=== PATIENT | female | born 1975 | race Caucasian/White ===

== ENCOUNTER 2017-07-09 23:13 | Emergency (ER) | payer BC, MEDICARE ==
[2017-07-09] MEDS ORDERED: ATARAX 25 MG PO ONE (23:38)
--- NOTE | 2017-07-09 23:42 | ERPHSYRPT ---
- History of Present Illness Time Seen by Provider: 07/09/17 23:25 Source: patient Exam Limitations: no limitations Patient Subjective Stated Complaint: PT STATES LAST NIGHT AT THE FESTIVAL SHE FELT LIKE BUGS WERE SWARMING HER AND BITING HER ARMS. REPORTS THIS MORNING SHE WOKE TO BLISTERS ON HER ARMS THAT WERE DRAINING AND PAINFUL, SHE ALSO HAD JAW PAIN. ALSO REPORTS NOT FEELING WELL SINCE WAKING WITH DIZZINESS, NAUSEA, AND SHAKING-PT STATES SHE BELIEVES THE SHAKINESS IS R/T HER PRE-EXISTING ANXIETY. PT ALSO STATES SHE HAS RECENTLY BEEN VOMITING BLOOD, STATES IT IS DAILY AND USUALLY IN THE [employer]. STATES SHE HAS BEEN TOLD IN THE PAST SHE HAS BLEEDING ULCERS, REPORTS SHE WAS DX APPROX 2012. Triage Nursing Assessment: PT IS AOX3, PUPILS PERRL, RESPS ARE EASY AND NON LABORED, SKIN IS PINK WARM AND DRY. BLISTERS NOTED TO THE BILATERAL ARMS. PRESENT ON THE RIGHT UPPER ARM AND THE LEFT UPPER AND LOWER ARM. ONE BLISTER NOTED TO THE RIGHT ANKLE. SOME OF THE BLISTERED AREAS ARE OPEN AND DRAINAGE IS PRESENT. SOME ARE COVERED IN A YELLOW/GOLD CRUST. PAIN IS REPORTED TO THE RIGHT ARM. DENIES ANY NEW MEDICATIONS OR EXPOSURE. Physician History: ABOUT 20 HOURS AGO PT NOTICED ITCHY BLISTERS ON HER RIGHT ARM AND LEFT FOREARM WITH NAUSEA, LEFT EARACHE, ANXIETY, DIZZINESS AND SHORTNESS OF AIR. PT STATES SHE HAS HAD INTERMITTENT VOMITING SINCE 2012 WITH BRIGHT RED BLOOD IN THE PAST 2 MONTHS. PT ALSO STATES SHE HAD AN EGD IN 2014 WITH DIAGNOSIS OF ULCERS. PT ALSO STATES HER ARMS AND LEGS HAVE INTERMITTENT NUMBNESS SINCE 2013. PT HAD HER GALLBLADDER REMOVED IN 2013. PT DENIES CHEST PAIN, FEVER, HEADACHE. Allergies/Adverse Reactions: No Known Drug Allergies Allergy (Unverified 07/09/17 23:36) Hx Tetanus, Diphtheria Vaccination/Date Given: Yes Hx Influenza Vaccination/Date Given: No Hx Pneumococcal Vaccination/Date Given: No Immunizations Up to Date: Yes - Review of Systems Constitutional: No Fever Ears, Nose, & Throat: Ear Pain Respiratory: Dyspnea Cardiac: No Chest Pain Abdominal/Gastrointestinal: Nausea, Vomiting, Hematemesis Neurological: Dizziness, No Headache All Other Systems: Reviewed and Negative - Past Medical History Pertinent Past Medical History: Yes GI Medical History: GERD, Ulcer Psycho-Social History: Anxiety - Past Surgical History Past Surgical History: Yes Gastrointestinal: Cholecystectomy Female Surgical History: Tubal Ligation - Social History Smoking Status: Never smoker Drug Use: none Patient Lives Alone: No - Female History Hx Last Menstrual Period: 06/19/17 - Nursing Vital Signs Nursing Vital Signs: Initial Vital Signs Temperature 97.6 F 07/09/17 23:14 Pulse Rate 91 H 07/09/17 23:14 Respiratory Rate 20 07/09/17 23:14 Blood Pressure 148/112 07/09/17 23:14 O2 Sat by Pulse Oximetry 99 07/09/17 23:14 Pain Scale Pain Intensity 2 - Physical Exam General Appearance: alert, anxiety Eye Exam: PERRL/EOMI Ears, Nose, Throat Exam: TMs normal, pharynx normal, moist mucous membranes, other (NO PHARYNGEAL EDEMA) Neck Exam: normal inspection Respiratory Exam: lungs clear Cardiovascular Exam: normal heart sounds Gastrointestinal/Abdomen Exam: soft, normal bowel sounds Back Exam: normal range of motion Extremity Exam: No pedal edema Neurologic Exam: alert, cooperative, No normal mood/affect (VERY ANXIOUS) Skin Exam: rash (~ 2-4 mm BLISTERS OVER THE POSTERIOR ASPECT OF THE LEFT FOREARM AND DISTAL POSTERIOR ASPECT OF THE RIGHT ARM ALL OVER AN ERYTHEMATOUS MACULAR RASH. ) SpO2 Interpretation: normal SpO2: 99 Oxygen Delivery: Room Air - Course Nursing assessment & vital signs reviewed: Yes Ordered Tests: Active Orders 24 hr Category Date Time Status AMYLASE Stat Lab 07/09/17 23:50 Completed CBC W DIFF Stat Lab 07/09/17 23:50 Completed CMP Stat Lab 07/09/17 23:50 Completed LIPASE Stat Lab 07/09/17 23:50 Completed MAGNESIUM Stat Lab 07/09/17 23:50 Completed PROTIME WITH INR Stat Lab 07/09/17 23:50 Completed PTT Stat Lab 07/09/17 23:50 Completed Medication Summary Discontinued Medications Generic Name Dose Route Start Last Admin Trade Name Freq PRN Reason Stop Dose Admin Ceftriaxone Sodium 1,000 mg 07/10/17 01:05 Rocephin 1000 Mg Inj IM 07/10/17 01:06 STAT ONE Hydroxyzine HCl 50 mg 07/09/17 23:38 07/09/17 23:45 Atarax 25 Mg PO 07/09/17 23:39 50 mg STAT ONE Administration Hydroxyzine HCl Confirm 07/09/17 23:44 Atarax 25 Mg Administered 07/09/17 23:45 Dose 50 mg .ROUTE .STK-MED ONE Potassium Chloride 10 meq 07/10/17 01:05 Klor Con 10 Meq PO 07/10/17 01:06 STAT ONE Lab/Rad Data: Laboratory Result Diagrams 07/09/17 23:50 07/09/17 23:50 Laboratory Results 07/09/17 07/09/17 07/09/17 Range/Units 23:50 23:50 23:50 WBC 13.2 H (4.0-10.5) K/mm3 RBC 4.73 (4.1-5.4) M/mm3 Hgb 12.9 (12.0-16.0) gm/dl Hct 40.1 (35-47) % MCV 84.8 (78-100) fl MCH 27.3 (26-32) pg MCHC 32.2 (32-36) g/dl RDW 15.3 H (11.5-14.0) % Plt Count 359 (150-450) K/mm3 MPV 10.8 H (6-9.5) fl Gran % 53.9 (36.0-66.0) % Lymphocytes % 33.6 (24.0-44.0) % Monocytes % 9.4 (0.0-12.0) % Eosinophils % 2.9 (0.00-5.0) % Basophils % 0.2 (0.0-0.4) % Basophils # 0.02 (0-0.4) INR 1.11 (0.8-3.0) APTT 29.8 (25.3-37.0) SECONDS Sodium 140 (136-145) mEq/L Potassium 3.2 L (3.5-5.1) mEq/L Chloride 104 (98-107) mEq/L Carbon Dioxide 24.6 (21-32) mEq/L Anion Gap 14.6 (5-15) MEQ/L BUN 9 (9-20) mg/dL Creatinine 0.74 (0.55-1.30) mg/dl Estimated GFR > 60 ML/MIN Glucose 98 (70-110) MG/DL Calcium 9.0 (8.5-10.1) mg/dL Magnesium 1.8 (1.8-2.4) mg/dL Total Bilirubin 0.40 (0.2-1.0) mg/dL AST 18 (15-37) U/L ALT 25 (12-78) U/L Alkaline Phosphatase 68 (46-116) U/L Serum Total Protein 8.0 (6.4-8.2) gm/dL Albumin 3.7 (3.4-5.0) g/dL Amylase 31 (25-115) U/L Lipase 116 (73-393) U/L Ur Collection Type Urine Color (YELLOW) Urine Appearance (CLEAR) Urine pH (5-6) Ur Specific [place] (1.005-1.025) Urine Protein (Negative) Urine Ketones (NEGATIVE) Urine Blood (0-5) Felipe/ul Urine Nitrite (NEGATIVE) Urine Bilirubin (NEGATIVE) Urine Urobilinogen (0-1) mg/dL Ur Leukocyte Esterase (NEGATIVE) Urine Microscopic RBC (0-2) /HPF Urine Microscopic WBC (0-5) /HPF Ur Epithelial Cells (FEW) /HPF Urine Bacteria (NEGATIVE) /HPF Urine Mucus (NEGATIVE) /HPF Urine Glucose (NEGATIVE) mg/dL Urine Opiates Level (NEGATIVE) Ur Methadone (NEGATIVE) Urine Barbiturates (NEGATIVE) Ur Phencyclidine (PCP) (NEGATIVE) Urine Amphetamine (NEGATIVE) U Benzodiazepine Level (NEGATIVE) Urine Cocaine (NEGATIVE) Urine Marijuana (THC) (NEGATIVE) Specimen Received 07/09/17 07/09/17 Range/Units 00:05 00:05 WBC (4.0-10.5) K/mm3 RBC (4.1-5.4) M/mm3 Hgb (12.0-16.0) gm/dl Hct (35-47) % MCV (78-100) fl MCH (26-32) pg MCHC (32-36) g/dl RDW (11.5-14.0) % Plt Count (150-450) K/mm3 MPV (6-9.5) fl Gran % (36.0-66.0) % Lymphocytes % (24.0-44.0) % Monocytes % (0.0-12.0) % Eosinophils % (0.00-5.0) % Basophils % (0.0-0.4) % Basophils # (0-0.4) INR (0.8-3.0) APTT (25.3-37.0) SECONDS Sodium (136-145) mEq/L Potassium (3.5-5.1) mEq/L Chloride (98-107) mEq/L Carbon Dioxide (21-32) mEq/L Anion Gap (5-15) MEQ/L BUN (9-20) mg/dL Creatinine (0.55-1.30) mg/dl Estimated GFR ML/MIN Glucose (70-110) MG/DL Calcium (8.5-10.1) mg/dL Magnesium (1.8-2.4) mg/dL Total Bilirubin (0.2-1.0) mg/dL AST (15-37) U/L ALT (12-78) U/L Alkaline Phosphatase (46-116) U/L Serum Total Protein (6.4-8.2) gm/dL Albumin (3.4-5.0) g/dL Amylase (25-115) U/L Lipase (73-393) U/L Ur Collection Type CLEAN CATCH Urine Color YELLOW (YELLOW) Urine Appearance CLEAR (CLEAR) Urine pH 6.0 (5-6) Ur Specific [place] 1.015 (1.005-1.025) Urine Protein NEGATIVE (Negative) Urine Ketones NEGATIVE (NEGATIVE) Urine Blood 5-10 (0-5) Felipe/ul Urine Nitrite NEGATIVE (NEGATIVE) Urine Bilirubin NEGATIVE (NEGATIVE) Urine Urobilinogen 1 (0-1) mg/dL Ur Leukocyte Esterase 1+ (NEGATIVE) Urine Microscopic RBC 0-2 (0-2) /HPF Urine Microscopic WBC 2-5 (0-5) /HPF Ur Epithelial Cells FEW (FEW) /HPF Urine Bacteria FEW (NEGATIVE) /HPF Urine Mucus SLIGHT (NEGATIVE) /HPF Urine Glucose NEGATIVE (NEGATIVE) mg/dL Urine Opiates Level NEG. (NEGATIVE) Ur Methadone NEG. (NEGATIVE) Urine Barbiturates NEG. (NEGATIVE) Ur Phencyclidine (PCP) NEG. (NEGATIVE) Urine Amphetamine NEG. (NEGATIVE) U Benzodiazepine Level NEG. (NEGATIVE) Urine Cocaine NEG. (NEGATIVE) Urine Marijuana (THC) NEG. (NEGATIVE) Specimen Received 07/10/17 0005 - Departure Time of Disposition: 01:10 Departure Disposition: Home Clinical Impression: MILD CELLULITIS OF RIGHT ARM AND LEFT FOREARM, ANXIETY Condition: Stable Critical Care Time: No Referrals: ANNIE PERALTA MD [Primary Care Provider] - Instructions: Cellulitis -- Adult Additional Instructions: FOLLOW UP WITH PRIVATE DOCTOR TOMORROW. Prescriptions: Hydroxyzine HCl 25 mg [Atarax 25 mg] 50 mg PO Q4H PRN PRN #40 tablet PRN Reason: Itching Clindamycin HCl 300 mg PO Q6H #40 capsule
[2017-07-09] MEDS ORDERED: ATARAX 25 MG ONE (23:44)
[2017-07-09 23:58] LABS: BASOPHIL % 0.2 % (0.0-0.4); Eosinophil % 2.9 % (0.00-5.0); Granulocytes % 53.9 % (36.0-66.0); Lymphocytes % 33.6 % (24.0-44.0); Mean Cell Volume 84.8 fl (78-100); Mean Corpuscular Hemoglobin 27.3 pg (26-32); Mean Platelet Volume 10.8 fl (6-9.5); Monocytes % 9.4 % (0.0-12.0); Platelet Count 359 K/mm3 (150-450); Red Blood Count 4.73 M/mm3 (4.1-5.4); Red Cell Distribution Width 15.3 % (11.5-14.0); White Blood Count 13.2 K/mm3 (4.0-10.5)
[2017-07-10 00:12] LABS: INR 1.11 (0.8-3.0); PROTIME 12.3 SECONDS (9.95-12.35)
[2017-07-10 00:15] LABS: PTT 29.8 SECONDS (25.3-37.0)
[2017-07-10 00:21] LABS: ALBUMIN 3.7 g/dL (3.4-5.0); ALKALINE PHOSPHATASE 68 U/L (46-116); ANION GAP 14.6 MEQ/L (5-15); BLOOD UREA NITROGEN 9 mg/dL (9-20); CHLORIDE 104 mEq/L (98-107); Carbon Dioxide 24.6 mEq/L (21-32); Glucose 98 MG/DL (70-110); LIPASE 116 U/L (73-393); MAGNESIUM 1.8 mg/dL (1.8-2.4); Potassium 3.2 mEq/L (3.5-5.1); SGOT/AST 18 U/L (15-37); SGPT/ALT 25 U/L (12-78); SODIUM 140 mEq/L (136-145)
[2017-07-10 00:28] LABS: Collection Type CLEAN CATCH; Leukocyte Esterase 1+ (NEGATIVE)
[2017-07-10 00:29] LABS: ADD URINE CULTURE? YES (NO); Bacteria FEW /HPF (NEGATIVE); Bilirubin NEGATIVE (NEGATIVE); COMPLETE URINE MICROSCOPIC? YES; Epithelial Cells FEW /HPF (FEW); Glucose NEGATIVE (NEGATIVE); Mucus SLIGHT /HPF (NEGATIVE)
[2017-07-10 01:00] VITALS: PULSE 68
[2017-07-10] MEDS ORDERED: Klor Con 10 MEQ PO ONE ×2 (01:05→01:09)
[2017-07-10] MEDS ORDERED: Rocephin 1000 MG INJ IM ONE (01:05)
[2017-07-10] MEDS ORDERED: Rocephin 1000 MG INJ ONE (01:09)
[2017-07-10 01:10] VITALS: O2SAT 99
[2017-07-10 01:38] VITALS: BP 150/98
== END 2017-07-10 01:38 | disposition home or self-care (01) ==
LOC: ED 23:13
DX: L03.113 Cellulitis of right upper limb (principal); L03.114 Cellulitis of left upper limb; F41.9 Anxiety disorder, unspecified; R11.2 Nausea with vomiting, unspecified; K92.0 Hematemesis; R42 Dizziness and giddiness; K21.9 Gastro-esophageal reflux disease without esophagitis
CPT/HCPCS: 36415; 80053; 80307; 81000; 82150; 83690; 83735; 85025; 85610; 85730; 87086; 96372; 99284; J0696; A9270-GY

== ENCOUNTER 2017-07-23 06:08 | Day surgery (SDC) | payer MEDICARE ==
[~2017-07-23 06:08] MED LIST: Lactated Ringers 1,000 ML IV SCH
[2017-07-23] MEDS ORDERED: DIPRIVAN 200 MG/20 ML IV ONE (06:09)
[2017-07-23] MEDS ORDERED: Versed 2 MG/2 ML Injection IV ONE (06:09)
--- NOTE | 2017-07-23 07:44 | OP ---
SURGERY DATE/TIME: 07/23/201705 PREOPERATIVE DIAGNOSIS: Hematemesis. POSTOPERATIVE DIAGNOSIS: Normal exam. PROCEDURE: EGD. SURGEON: Samm Orozco M.D. ANESTHESIA: MAC by Abimael Borrego CRNA. ESTIMATED BLOOD LOSS: None. SPECIMENS: None. DESCRIPTION OF PROCEDURE: After informed written consent was obtained, the patient was taken to the endoscopy suite. She underwent monitored anesthesia and a bite block was inserted. The endoscope was inserted into the posterior oropharynx and under direct visualization the esophagus was traversed. The esophageal mucosa had a normal in appearance free of any lesions or defects. Upon entering the stomach there was a normal rugated gastric mucosa free of any lesions or defects. The gastroesophageal junction likewise appeared normal upon entry. Upon entry into the stomach the gastric mucosa was rugated and normal in appearance free of defects. The pylorus was inspected and traversed and the first and second portions of the duodenum all had normal mucosal appearance free of lesions or abnormalities. Upon withdrawal again all mucosal surfaces were within normal limits. The scope was removed and the patient was transferred to the recovery room in excellent condition.
[2017-07-23] MEDS ORDERED: TYLENOL 325 MG PO STA (08:12)
[2017-07-23] MEDS ORDERED: TYLENOL 325 MG ONE (08:13)
[2017-07-23 08:36] VITALS: BP 108/62; PULSE 64; O2SAT 97
== END 2017-07-23 08:40 | disposition home or self-care (01) ==
LOC: SDC 06:08
PROVIDERS: ATTEND Family Medicine
PROC: 0DJ08ZZ Inspection of Upper Intestinal Tract, Via Natural or Artificial Opening Endoscopic (ICD-10-PCS; principal; 2017-07-23)
DX: K92.0 Hematemesis (principal)
CPT/HCPCS: 00740; J2250; J2704; A9270-GY

== ENCOUNTER 2017-12-31 21:55 | Emergency (ER) | payer MEDICARE ==
[2018-01-01] MEDS ORDERED: TORAdol 30 mg Injection IM ONE (00:20)
[2018-01-01] MEDS ORDERED: TORAdol 30 mg Injection ONE (00:21)
--- NOTE | 2018-01-01 00:21 | ERPHSYRPT ---
- History of Present Illness Time Seen by Provider: 01/01/18 00:07 Source: patient Exam Limitations: no limitations Patient Subjective Stated Complaint: Right Upper Arm Pain, radiation into right shoulder and upper back x1 month. Triage Nursing Assessment: Pt presents to the ED with complaints of right upper arm pain with radiation into back and right shoulder. Pt denies known injury, states "I feels like my bones are rubbing together." No deformity noted. Pt states pain worse with movement, slightly improved with rest. No distress noted. Skin PWD. Physician History: FOR THE PAST MONTH PT HAS HAD MID RIGHT ARM PAIN WITH RADIATION TO THE RIGHT SHOULDER AND UPPER BACK; DENIES NUMBNESS OF THE RIGHT HAND DIGITS; DENIES PRIOR INJURY TO THE RIGHT ARM. Allergies/Adverse Reactions: No Known Drug Allergies Allergy (Verified 07/23/17 06:29) Home Medications: Citalopram Hydrobromide 20 mg* [ceLEXa 20 MG] 20 mg PO DAILY 07/21/17 [ History] PANTOPRAZOLE 40 mg Tablet [Protonix 40MG Tablet] 40 mg PO QAM 07/21/17 [ History] Hx Tetanus, Diphtheria Vaccination/Date Given: Yes Hx Influenza Vaccination/Date Given: No Hx Pneumococcal Vaccination/Date Given: No Immunizations Up to Date: No - Review of Systems Musculoskeletal: Other (RIGHT ARM PAIN) - Past Medical History Pertinent Past Medical History: Yes Neurological History: No Pertinent History ENT History: No Pertinent History Cardiac History: No Pertinent History Respiratory History: No Pertinent History Endocrine Medical History: No Pertinent History Musculoskeletal History: No Pertinent History GI Medical History: GERD, Ulcer History: No Pertinent History Psycho-Social History: Anxiety Female Reproductive Disorders: No Pertinent History - Past Surgical History Past Surgical History: Yes Neuro Surgical History: No Pertinent History Cardiac: No Pertinent History Respiratory: No Pertinent History Gastrointestinal: Cholecystectomy Genitourinary: No Pertinent History Musculoskeletal: Other Female Surgical History: Tubal Ligation Other Surgical History: states six cyst removed from head area - Social History Smoking Status: Never smoker Exposure to second hand smoke: No Drug Use: none Patient Lives Alone: No - Female History Hx Last Menstrual Period: 12/16/2017 Hx Now: No - Nursing Vital Signs Nursing Vital Signs: Initial Vital Signs Temperature 97.6 F 12/31/17 22:24 Pulse Rate 80 12/31/17 22:24 Respiratory Rate 16 12/31/17 22:24 Blood Pressure 139/87 12/31/17 22:24 O2 Sat by Pulse Oximetry 99 12/31/17 22:24 Pain Scale Pain Intensity 5 - Physical Exam General Appearance: alert Shoulder Exam: normal ROM Elbow/Forearm Exam: normal ROM Wrist Exam: normal ROM Hand Exam: normal ROM Neuro/Tendon Exam: normal sensation, normal motor functions, normal tendon functions Mental Status Exam: alert Skin Exam: warm, dry SpO2 Interpretation: normal SpO2: 99 Oxygen Delivery: Room Air - Course Nursing assessment & vital signs reviewed: Yes - Radiology Exams Right Humerus X-ray Interpretation: Interpreted by me, No Fracture Ordered Tests: Active Orders 24 hr Category Date Time Status Sling Application STAT Care 01/01/18 01:48 Active HUMERUS Stat Exams 01/01/18 00:20 Ordered Medication Summary Discontinued Medications Generic Name Dose Route Start Last Admin Trade Name Freq PRN Reason Stop Dose Admin Ketorolac Tromethamine 60 mg 01/01/18 00:20 01/01/18 00:23 Toradol 30 Mg Injection IM 01/01/18 00:21 60 mg STAT ONE Administration Ketorolac Tromethamine Confirm 01/01/18 00:21 Toradol 30 Mg Injection Administered 01/01/18 00:22 Dose 60 mg .ROUTE .[facility] ONE - Departure Time of Disposition: 01:51 Departure Disposition: Home Clinical Impression: BURSITIS OF RIGHT ARM/SHOULDER Condition: Stable Critical Care Time: No Referrals: ANNIE PERALTA MD [Primary Care Provider] - Instructions: Bursitis Additional Instructions: FOLLOW UP WITH PRIVATE DOCTOR TOMORROW. WEAR RIGHT ARM SLING FOR COMFORT. Prescriptions: Naproxen [Naprosyn] 500 mg PO Q12H PRN PRN #20 tablet PRN Reason: Pain
[2018-01-01 01:19] VITALS: BP 117/78; PULSE 67
[2018-01-01 01:52] VITALS: O2SAT 99
--- NOTE | 2018-01-01 09:57 | XRAY ---
Indication: Pain. No known injury. Comparison: None 3 views of the right humerus obtained. No bony, articular, or soft tissue abnormalities.
== END 2018-01-01 02:01 | disposition home or self-care (01) ==
LOC: ED 21:55
DX: M75.51 Bursitis of right shoulder (principal)
CPT/HCPCS: 73060; 99284; J1885

== ENCOUNTER 2018-02-02 23:45 | Observation (INO) | payer MEDICARE ==
[2018-02-03] MEDS ORDERED: BABY ASPIRIN 81 MG CHEW PO ONE (00:07)
[2018-02-03] MEDS ORDERED: Sodium Chloride 0.9% 1000 ML 1,000 ML ONE (00:13)
[2018-02-03] MEDS ORDERED: BABY ASPIRIN 81 MG CHEW ONE (00:13)
[2018-02-03] MEDS ORDERED: Sodium Chloride 0.9% 1000 ML 1,000 ML IV SCH (00:15)
[2018-02-03] MEDS ORDERED: Nitrostat 0.4 MG (ED) SL ONE ×2 (00:28→00:31)
[2018-02-03 00:38] LABS: BASOPHIL % 0.2 % (0.0-0.4); Basophil (Absolute #) 0.02 (0-0.4); Eosinophil % 2.8 % (0.00-5.0); Granulocyte Absolute (ANC) 4.91 (1.4-6.9); Granulocytes % 46.3 % (36.0-66.0); Hematocrit 38.7 % (35-47); Hemoglobin 12.4 gm/dl (12.0-16.0); Lymphocyte (Absolute #) 4.38 (1.0-4.6); Lymphocytes % 41.3 % (24.0-44.0); Mean Corpuscular Hemoglobin 26.3 pg (26-32); Mean Platelet Volume 10.9 fl (6-9.5); Monocytes % 9.4 % (0.0-12.0); Platelet Count 385 K/mm3 (150-450); Red Blood Count 4.72 M/mm3 (4.1-5.4); Red Cell Distribution Width 16.7 % (11.5-14.0); White Blood Count 10.6 K/mm3 (4.0-10.5)
[2018-02-03 00:45] LABS: INR 1.08 (0.8-3.0)
[2018-02-03 00:50] LABS: BLOOD UREA NITROGEN 7 mg/dL (7-17); CHLORIDE 105 mmol/L (98-107); Calcium 9.1 mg/dL (8.4-10.2); Carbon Dioxide 24 mmol/L (22-30); Creatinine 1 0.58 mg/dL (0.52-1.04); Glucose 128 mg/dL (74-106); Potassium 3.3 mmol/L (3.5-5.1); SODIUM 139 mmol/L (137-145)
[2018-02-03 00:57] LABS: D-DIMER QUANTITATION < 215 ng/mL (215-500)
--- NOTE | 2018-02-03 01:13 | ERPHSYRPT ---
- History of Present Illness Time Seen by Provider: 02/03/18 00:12 Historian: patient Exam Limitations: clinical condition Patient Subjective Stated Complaint: pt states she started having chest pain at 1400 this afternoon; increasingly worse this pm; pain radiates into her back; states pain is most intense near her midchest and neck near her throat. Triage Nursing Assessment: pt a&o x3; skin p, w, & d; ambulated to room per self ; appears anxious and worried upon arrival; no other distress noted. Physician History: PATIENT WITH A HISTORY OF ANXIETY COMPLAINS OF ACUTE ONSET OF UPPER STERNAL CHEST PRESSURE SINCE 2PM WORSE UPON INSPIRATION, OCCASIONAL RADIATION TO HIS BACK. DENIES DYSPNEA, PALPITATIONS, OR DIAPHORESIS. PAIN SCALE 7/10. Timing/Duration: today Activities at Onset: none Quality: pressure, sharpness Location: substernal Chest Pain Radiation: back Severity of Pain-Max: moderate Severity of Pain-Current: moderate Modifying Factors: Improves With: breathing, change in position Associated Symptoms: hurts to breathe Prior Chest Pain/Cardiac Workup: no prior chest pain Nitro Today/Relief: 0.4 mg x 2, provided by ED Aspirin Treatment Today: 81 mg x 4, provided by ED Allergies/Adverse Reactions: No Known Drug Allergies Allergy (Verified 02/03/18 00:10) Home Medications: Citalopram Hydrobromide 20 mg* [ceLEXa 20 MG] 20 mg PO DAILY 07/21/17 [ History] PANTOPRAZOLE 40 mg Tablet [Protonix 40MG Tablet] 40 mg PO QAM 07/21/17 [ History] Hx Tetanus, Diphtheria Vaccination/Date Given: Yes Hx Influenza Vaccination/Date Given: No Hx Pneumococcal Vaccination/Date Given: No Immunizations Up to Date: No - Review of Systems Constitutional: No Fever, No Chills Eyes: No Symptoms Ears, Nose, & Throat: No Symptoms Respiratory: No Symptoms, No Cough, No Dyspnea Cardiac: Chest Pain, No Edema, No Syncope Abdominal/Gastrointestinal: No Abdominal Pain, No Nausea, No Vomiting, No Diarrhea Genitourinary Symptoms: No Symptoms, No Dysuria Musculoskeletal: No Symptoms, No Back Pain, No Neck Pain Skin: No Rash Neurological: No Dizziness, No Focal Weakness, No Sensory Changes Psychological: No Symptoms Endocrine: No Symptoms All Other Systems: Reviewed and Negative - Past Medical History Pertinent Past Medical History: Yes Neurological History: No Pertinent History ENT History: No Pertinent History Cardiac History: No Pertinent History Respiratory History: No Pertinent History Endocrine Medical History: No Pertinent History Musculoskeletal History: No Pertinent History GI Medical History: GERD, Ulcer History: No Pertinent History Psycho-Social History: Anxiety Female Reproductive Disorders: No Pertinent History - Past Surgical History Past Surgical History: Yes Neuro Surgical History: No Pertinent History Cardiac: No Pertinent History Respiratory: No Pertinent History Gastrointestinal: Cholecystectomy Genitourinary: No Pertinent History Musculoskeletal: Other Female Surgical History: Tubal Ligation Other Surgical History: states six cyst removed from head area - Social History Smoking Status: Never smoker Exposure to second hand smoke: No Drug Use: none Patient Lives Alone: No - Female History Hx Last Menstrual Period: 01/13/18 Hx Now: No - Nursing Vital Signs Nursing Vital Signs: Initial Vital Signs Temperature 98.6 F 02/02/18 23:59 Pulse Rate 80 02/02/18 23:59 Respiratory Rate 16 02/02/18 23:59 Blood Pressure 122/88 02/02/18 23:59 O2 Sat by Pulse Oximetry 98 02/02/18 23:59 Pain Scale Pain Intensity 5 - Physical Exam General Appearance: no apparent distress, alert Eye Exam: PERRL/EOMI, eyes nml inspection Ears, Nose, Throat Exam: normal ENT inspection, moist mucous membranes Neck Exam: normal inspection, non-tender, supple, full range of motion Respiratory Exam: normal breath sounds, chest tenderness (PARASTERNAL T-2 TO T-4 ), lungs clear, No respiratory distress Cardiovascular Exam: regular rate/rhythm, normal heart sounds Gastrointestinal/Abdomen Exam: soft, normal bowel sounds (NONTENDER), No tenderness, No mass Back Exam: normal inspection, No CVA tenderness, No vertebral tenderness Extremity Exam: normal inspection, normal range of motion Neurologic Exam: alert, oriented x 3, cooperative, normal mood/affect, sensation nml, No motor deficits Skin Exam: normal color, warm, dry SpO2 Interpretation: normal SpO2: 96 Oxygen Delivery: Nasal Cannula - Course EKG Interpreted by Me: RATE, Sinus Rhythm, NORMAL AXIS, Non-specific ST Changes - Radiology Exams Chest X-ray Interpretation: Interpreted by me Ordered Tests: Active Orders 24 hr Category Date Time Status Senior Maintenance Machinist STAT Care 02/03/18 00:07 Active EKG-ER Only STAT Care 02/03/18 00:07 Active IV Insertion STAT Care 02/03/18 00:22 Active Oxygen-ED Only NASAL CANNULA 2 lpm Care 02/03/18 00:07 Active CHEST 1 VIEW (PORTABLE) Stat Exams 02/03/18 00:07 Taken BMP Stat Lab 02/03/18 00:05 Completed CBC W DIFF Stat Lab 02/03/18 00:05 Completed D-DIMER QUANTITATION Stat Lab 02/03/18 00:05 Completed PROTIME WITH INR Stat Lab 02/03/18 00:05 Completed TROPONIN Q3H Lab 02/03/18 00:05 Completed TROPONIN Q3H Lab 02/03/18 03:15 Ordered TROPONIN Q3H Lab 02/03/18 06:15 Ordered TROPONIN Q3H Lab 02/03/18 09:15 Ordered TROPONIN Q3H Lab 02/03/18 12:15 Ordered Transfer Order Routine Transfer 02/03/18 Ordered Medication Summary Generic Name Dose Route Start Last Admin Trade Name Freq PRN Reason Stop Dose Admin Sodium Chloride 1,000 mls @ 100 mls/hr 02/03/18 00:15 02/03/18 00:17 Sodium Chloride 0.9% 1000 Ml IV 03/05/18 00:14 100 mls/hr .Q10H SRINIVASAN Administration Discontinued Medications Generic Name Dose Route Start Last Admin Trade Name Freq PRN Reason Stop Dose Admin Aspirin 324 mg 02/03/18 00:07 02/03/18 00:17 Baby Aspirin 81 Mg Chew PO 02/03/18 00:08 324 mg STAT ONE Administration Aspirin Confirm 02/03/18 00:13 Baby Aspirin 81 Mg Chew Administered 02/03/18 00:14 Dose 324 mg .ROUTE .STK-MED ONE Morphine Sulfate 2 mg 02/03/18 01:28 02/03/18 01:32 Morphine Sulfate 2 Mg Inj IV 02/03/18 01:29 2 mg STAT ONE Administration Morphine Sulfate Confirm 02/03/18 01:31 Morphine Sulfate 2 Mg Inj Administered 02/03/18 01:32 Dose 2 mg .ROUTE .STK-MED ONE Nitroglycerin 0.4 mg 02/03/18 00:28 02/03/18 00:32 Nitrostat 0.4 Mg (Ed) SL 02/03/18 00:29 0.4 mg STAT ONE Administration Nitroglycerin Confirm 02/03/18 00:31 Nitrostat 0.4 Mg (Ed) Administered 02/03/18 00:32 Dose 0.4 mg SL .STK-MED ONE Nitroglycerin 1 gm 02/03/18 01:28 02/03/18 01:33 Nitro-Bid 2% Ud Packets TOP 02/03/18 01:29 1 gm STAT ONE Administration Nitroglycerin Confirm 02/03/18 01:30 Nitro-Bid 2% Ud Packets Administered 02/03/18 01:31 Dose 1 gm .ROUTE .STK-MED ONE Ondansetron HCl 4 mg 02/03/18 01:29 Zofran 4 Mg/2 Ml Vial IV 02/03/18 01:30 STAT ONE Lab/Rad Data: Laboratory Result Diagrams 02/03/18 00:05 02/03/18 00:05 Laboratory Results 02/03/18 02/03/18 02/03/18 Range/Units 00:05 00:05 00:05 WBC (4.0-10.5) K/mm3 RBC (4.1-5.4) M/mm3 Hgb (12.0-16.0) gm/dl Hct (35-47) % MCV (78-100) fl MCH (26-32) pg MCHC (32-36) g/dl RDW (11.5-14.0) % Plt Count (150-450) K/mm3 MPV (6-9.5) fl Gran % (36.0-66.0) % Eos # (Auto) (0-0.5) Absolute Lymphs (auto) (1.0-4.6) Absolute Monos (auto) (0.0-1.3) Lymphocytes % (24.0-44.0) % Monocytes % (0.0-12.0) % Eosinophils % (0.00-5.0) % Basophils % (0.0-0.4) % Absolute Granulocytes (1.4-6.9) Basophils # (0-0.4) PT 12.0 (9.95-12.35) SECONDS INR 1.08 (0.8-3.0) D-Dimer < 215 L (215-500) ng/mL Sodium 139 (137-145) mmol/L Potassium 3.3 L (3.5-5.1) mmol/L Chloride 105 (98-107) mmol/L Carbon Dioxide 24 (22-30) mmol/L Anion Gap 14.0 (5-15) MEQ/L BUN 7 (7-17) mg/dL Creatinine 0.58 (0.52-1.04) mg/dL Estimated GFR > 60.0 ML/MIN Glucose 128 H (74-106) mg/dL Calcium 9.1 (8.4-10.2) mg/dL Troponin I < 0.012 (0.000-0.034) ng/mL 02/03/18 Range/Units 00:05 WBC 10.6 H (4.0-10.5) K/mm3 RBC 4.72 (4.1-5.4) M/mm3 Hgb 12.4 (12.0-16.0) gm/dl Hct 38.7 (35-47) % MCV 82.0 (78-100) fl MCH 26.3 (26-32) pg MCHC 32.0 (32-36) g/dl RDW 16.7 H (11.5-14.0) % Plt Count 385 (150-450) K/mm3 MPV 10.9 H (6-9.5) fl Gran % 46.3 (36.0-66.0) % Eos # (Auto) 0.30 (0-0.5) Absolute Lymphs (auto) 4.38 (1.0-4.6) Absolute Monos (auto) 1.00 (0.0-1.3) Lymphocytes % 41.3 (24.0-44.0) % Monocytes % 9.4 (0.0-12.0) % Eosinophils % 2.8 (0.00-5.0) % Basophils % 0.2 (0.0-0.4) % Absolute Granulocytes 4.91 (1.4-6.9) Basophils # 0.02 (0-0.4) PT (9.95-12.35) SECONDS INR (0.8-3.0) D-Dimer (215-500) ng/mL Sodium (137-145) mmol/L Potassium (3.5-5.1) mmol/L Chloride (98-107) mmol/L Carbon Dioxide (22-30) mmol/L Anion Gap (5-15) MEQ/L BUN (7-17) mg/dL Creatinine (0.52-1.04) mg/dL Estimated GFR ML/MIN Glucose (74-106) mg/dL Calcium (8.4-10.2) mg/dL Troponin I (0.000-0.034) ng/mL - Progress Progress: improved Progress Note: 02/03/18 01:14 ADMINISTERED 4 BABY ASA, NITROGLYCERIN 0.4MG SL X 2 IMPROVED CHEST PAIN, 1" NITROPASTE APPLIED TO CHEST WALL Discussed with : Jeremy (DISCUSSED WITH DR RODRIGEZ FOR OBSERVATION) - Departure Time of Disposition: 01:53 Departure Disposition: Observation Clinical Impression: ACUTE CHEST PAIN Condition: Stable Critical Care Time: No Referrals: ANNIE PERALTA MD [Primary Care Provider] -
[2018-02-03] MEDS ORDERED: NITRO-BID 2% UD PACKETS TOP ONE (01:28)
[2018-02-03] MEDS ORDERED: MORPHINE SULFATE 2 MG INJ IV ONE (01:28)
[2018-02-03] MEDS ORDERED: Zofran 4 MG/2 ML VIAL IV ONE (01:29)
[2018-02-03] MEDS ORDERED: NITRO-BID 2% UD PACKETS ONE (01:30)
[2018-02-03] MEDS ORDERED: MORPHINE SULFATE 2 MG INJ ONE (01:31)
[2018-02-03] MEDS ORDERED: Zofran 4 MG/2 ML VIAL ONE (02:02)
[2018-02-03] MEDS ORDERED: Nitrostat 0.4 MG Tablet SL PRN (02:58)
[2018-02-03] MEDS ORDERED: MAALOX ES 30 ML UNIT DOSE PO PRN (02:58)
[2018-02-03] MEDS ORDERED: Sodium Chloride 0.9% 500 ML 500 ML IV SCH (02:58)
[2018-02-03] MEDS ORDERED: MILK OF MAGNESIA 30 ML PO PRN (02:58)
[2018-02-03] MEDS ORDERED: Zofran 4 MG/2 ML VIAL IV PRN (02:58)
[2018-02-03] MEDS ORDERED: Senokot-S Tablet PO PRN (02:58)
[2018-02-03] MEDS ORDERED: MORPHINE SULFATE 2 MG INJ IV PRN (05:15)
[2018-02-03] MEDS: NITRO-BID 2% UD PACKETS TOP SCH ×2 (05:33→14:54)
[2018-02-03 06:14] LABS: Risk Ratio 4.7
[2018-02-03] MEDS: TYLENOL 325 MG PO PRN ×2 (08:19→14:53)
--- NOTE | 2018-02-03 09:37 | XRAY ---
Indication: Chest pain. Comparison: None Portable chest demonstrates subtle right base infiltrate versus atelectasis. Remaining heart, lungs, and bony thorax unremarkable.
[2018-02-03] MEDS ORDERED: ceLEXa 20 MG PO SCH (10:00)
[2018-02-03] MEDS ORDERED: Pepcid 20 MG PO SCH (10:00)
[2018-02-03] MEDS ORDERED: Ecotrin 325 MG PO SCH (10:00)
[2018-02-03 16:13] VITALS: BP 102/62; PULSE 66; O2SAT 93
--- NOTE | 2018-02-03 16:20 | PCM.SSS ---
History of Present Illness - Chief Complaint Chief Complaint: Acute Chest Pain History of Present Illness: is a 42 year old female who presented to the ER with acute onset of chest pain with radiation to the back, felt heavy like something was sitting on her chest. she was nauseated and short of breath as well. denies cough, fever or other associated symptoms. - Review of Systems Constitutional: No Fever, No Chills Respiratory: No Cough, No Short Of Breath Cardiac: Chest Pain Abdominal/Gastrointestinal: Nausea, No Abdominal Pain, No Vomiting Genitourinary Symptoms: No Dysuria Skin: No Rash All Other Systems: Reviewed and Negative Medications & Allergies Home Medications: Home Medication List Citalopram Hydrobromide 20 mg* [ceLEXa 20 MG] 20 mg PO EVENING MEAL 07/21/17 [History Confirmed 02/03/18] PANTOPRAZOLE 40 mg Tablet [Protonix 40MG Tablet] 40 mg PO EVENING MEAL 01/02 [History Confirmed 02/03/18] Albuterol Sulfate [Proair Hfa] 2 puffs IH Q4-6HPRN PRN #1 hfa.aer.ad 02/03/18 [ Rx] Levofloxacin [Levaquin] 500 mg PO DAILY #7 tablet 02/03/18 [Rx] Allergies/Adverse Reactions: Allergies Allergy/AdvReac Type Severity Reaction Status Date / Time No Known Drug Allergies Allergy Verified 02/03/18 00:10 - Past Medical History Past Medical History: Yes Neurological History: TIA ENT History: No Pertinent History Cardiac History: No Pertinent History Respiratory History: No Pertinent History Endocrine Medical History: No Pertinent History Musculoskelatal History: No Pertinent History GI Medical History: GERD, Ulcer History: No Pertinent History Pyscho-Social History: Anxiety Reproductive Disorders: No Pertinent History - Female History Hx Last Menstrual Period: 01/13/18 Are you now?: No - Past Surgical History Past Surgical History: Yes Neuro Surgical History: No Pertinent History Cardiac History: No Pertinent History Respiratory Surgery: No Pertinent History GI Surgical History: Cholecystectomy Genitourinary Surgical Hx: No Pertinent History Musculskeletal Surgical Hx: Other Female Surgical History: Tubal Ligation Other Surgical History: states six cyst removed from head area - Social History Smoking Status: Never smoker Exposure to second hand smoke: No Alcohol: Occasionally Drug Use: none - Physical Exam Vital Signs: Vital Signs - 24 hr Temp Pulse Resp BP Pulse Ox 02/03/18 16:00 98.4 F 66 16 102/62 93 L 02/03/18 12:00 98 02/03/18 11:03 97.8 F 62 16 94/51 98 02/03/18 08:00 98 02/03/18 07:23 98.0 F 64 16 99/57 97 02/03/18 03:55 98 02/03/18 03:17 97.5 F 68 19 100/59 98 02/03/18 02:01 78 22 97/60 95 02/03/18 01:53 96 02/03/18 00:37 80 20 120/70 96 02/03/18 00:33 80 18 132/84 99 02/02/18 23:59 98.6 F 80 16 122/88 98 Oxygen-Last 24 hours O2 Percentage 2 Liters = 28% O2 Percentage 2 Liters = 28% O2 Percentage 2 Liters = 28% O2 Percentage 2 Liters = 28% O2 Percentage 2 Liters = 28% O2 Percentage 2 Liters = 28% Oxygen Flowrate (L/min)-RT 2 General Appearance: no apparent distress, alert Eye Exam: PERRL/EOMI, eyes nml inspection Respiratory Exam: normal breath sounds, lungs clear, No respiratory distress Cardiovascular Exam: regular rate/rhythm, normal heart sounds, normal peripheral pulses Gastrointestinal/Abdomen Exam: soft, normal bowel sounds, No tenderness, No mass Extremity Exam: normal inspection, normal range of motion, pelvis stable Skin Exam: normal color, warm, dry, No rash Results - Labs Lab/Micro Results: Lab Results-Last 24 Hours 02/03/18 02/03/18 02/03/18 Range/Units 03:30 05:40 05:40 Troponin I < 0.012 < 0.012 (0.000-0.034) ng/mL Triglycerides 91 (30-150) mg/dL Cholesterol 136 (50-200) mg/dL LDL Cholesterol 91 (30-100) mg/dL HDL Cholesterol 29 L (40-60) mg/dL Heart Disease Risk Ratio 4.7 02/03/18 02/03/18 Range/Units 09:11 12:19 Troponin I < 0.012 < 0.012 (0.000-0.034) ng/mL Triglycerides (30-150) mg/dL Cholesterol (50-200) mg/dL LDL Cholesterol (30-100) mg/dL HDL Cholesterol (40-60) mg/dL Heart Disease Risk Ratio - Radiology Impressions Radiology Exams & Impressions: Radiology Procedures Category Date Time Status ECHO W/2D AND DOPPLER [US] Routine Exams 02/03/18 10:00 Taken - Other Procedures and Tests Respiratory Therapy 02/04/18 05:00 EKG ROUTINE 02/05/18 05:00 EKG ROUTINE 02/06/18 05:00 EKG ROUTINE Assessment/Plan (1) Chest pain Current Visit: Yes Status: Acute Onset Date: ~02/03/18 Assessment & Plan: LA ruled out, will need treadmill cardiolite stress test after discharge Code(s): R07.9 - CHEST PAIN, UNSPECIFIED (2) Pneumonia Current Visit: Yes Status: Acute Assessment & Plan: subtle infiltrate on chest xray, d-dimer negative. will send home on po levaquin and albuterol mdi Code(s): J18.9 - PNEUMONIA, UNSPECIFIED ORGANISM Hospital Summary - Vitals & Intake/Output Vital Signs: Vital Signs Temperature 98.4 F 02/03/18 16:00 Pulse Rate 66 02/03/18 16:00 Respiratory Rate 16 02/03/18 16:00 Blood Pressure 102/62 02/03/18 16:00 O2 Sat by Pulse Oximetry 93 L 02/03/18 16:00 Oxygen-Last Documented O2 Percentage 2 Liters = 28% Intake & Output: Intake & Output 02/01/18 02/02/18 02/03/18 02/04/18 11:59 11:59 11:59 11:59 Intake Total 240 240 Output Total 200 Balance 40 240 Weight 78.4 kg - Lab Result Diagrams: 02/03/18 00:05 02/03/18 00:05 Lab Results-Last 24 Hrs: Lab Results-Last 24 Hours 02/03/18 02/03/18 02/03/18 Range/Units 03:30 05:40 05:40 Troponin I < 0.012 < 0.012 (0.000-0.034) ng/mL Triglycerides 91 (30-150) mg/dL Cholesterol 136 (50-200) mg/dL LDL Cholesterol 91 (30-100) mg/dL HDL Cholesterol 29 L (40-60) mg/dL Heart Disease Risk Ratio 4.7 02/03/18 02/03/18 Range/Units 09:11 12:19 Troponin I < 0.012 < 0.012 (0.000-0.034) ng/mL Triglycerides (30-150) mg/dL Cholesterol (50-200) mg/dL LDL Cholesterol (30-100) mg/dL HDL Cholesterol (40-60) mg/dL Heart Disease Risk Ratio - Radiology Exams Ordered Rad Exams-Entire Visit: Radiology Procedures Category Date Time Status ECHO W/2D AND DOPPLER [US] Routine Exams 02/03/18 10:00 Taken - Procedures and Test Procedures and Tests throughout Hospitalization: Therapy Orders & Screens 02/03/18 07:54 EKG ROUTINE Comment: Diagnosis: Acute Chest Pain 02/04/18 05:00 EKG ROUTINE Comment: Diagnosis: Acute Chest Pain 02/05/18 05:00 EKG ROUTINE Comment: Diagnosis: Acute Chest Pain 02/06/18 05:00 EKG ROUTINE Comment: Diagnosis: Acute Chest Pain - Discharge Disposition: Home, Self-Care Condition: Stable Prescriptions: New Levofloxacin [Levaquin] 500 mg PO DAILY #7 tablet Albuterol Sulfate [Proair Hfa] 2 puffs IH Q4-6HPRN PRN #1 hfa.aer.ad PRN Reason: Cough Continue PANTOPRAZOLE 40 mg Tablet [Protonix 40MG Tablet] 40 mg PO EVENING MEAL Citalopram Hydrobromide 20 mg* [ceLEXa 20 MG] 20 mg PO EVENING MEAL Follow up with: ANNIE PERALTA MD [Primary Care Provider] - 1 Week
[2018-02-03] MEDS ORDERED: Protonix 40MG Tablet PO SCH (18:00)
[2018-02-04] MEDS ORDERED: ceLEXa 20 MG PO SCH (18:00)
--- NOTE | 2018-02-08 11:17 | ECHO ---
Transthoracic echocardiographic examination and color Doppler was done on 02/03/2018. INDICATION: Chest pains. IMPRESSION: 1) NO REGIONAL WALL MOTION ABNORMALITY. ESTIMATED GLOBAL LEFT VENTRICULAR EJECTION FRACTION OF AROUND 60%. 2) TRACE MITRAL REGURGITATION. 3) TRACE TRICUSPID REGURGITATION. RIGHT VENTRICULAR SYSTOLIC PRESSURE OF 23 MM OF MERCURY. The left ventricle is visualized and demonstrated adequate motion of all the segments. Estimated global left ventricular ejection fraction 60%. There is left ventricular hypertrophy. The mitral valve is seen and this opens adequately. There is trace mitral regurgitation. Left atrium is normal. The aortic valve opens adequately. The right side chambers are normal. There is trace tricuspid regurgitation. The right ventricular systolic pressure of 23 mm of Mercury.
== END 2018-02-03 17:50 | disposition home or self-care (01) ==
LOC: ED 23:45 → MED SURG 02-03 02:49
PROVIDERS: ADMIT Family Medicine; ATTEND Family Medicine
DX: J18.9 Pneumonia, unspecified organism (principal); Z86.73 Personal history of transient ischemic attack (TIA), and cerebral infarction without residual deficits; K21.9 Gastro-esophageal reflux disease without esophagitis; F41.9 Anxiety disorder, unspecified
CPT/HCPCS: 36000; 36415; 71045; 80048; 80061; 83721; 84484; 85025; 85379; 85610; 93005; 93041; 93268; 93306; 96374; 96375; 99285; J2270; J2405; A9270-GY; G0378

== ENCOUNTER 2018-03-03 22:23 | Observation (INO) | payer MEDICARE ==
--- NOTE | 2018-03-03 22:45 | ERPHSYRPT ---
- History of Present Illness Time Seen by Provider: 03/03/18 22:35 Source: patient Exam Limitations: no limitations Patient Subjective Stated Complaint: pt states at 1900 she begain having redness on the lt side of her face, swelling around her lt eye, and numbness on the lt side of her face. c/o headache 02/25 Triage Nursing Assessment: pt alert and oriented, answers questions approp. pt ambulatory with steady gait noted. respirations nonlabored with lungs cta. no facial droop noted. strength upper and lower equal bilat. redness noted to lt side of face under eye with small amt of swelling below lt eye. Physician History: 43 y/o female with history of anxiety comes to the ER with acute onset left eye droop and blurry vision of the left eye that started at 7 pm this evening. Pt states that she was sitting down at the time. Pt also admits to numbness of the left face and left arm. Pt was told that she had TIAs in the past. Pt is not on ASA. Pt also admits to occipital headache with dizziness. Pt denies any weakness , slurred speech or balance problems. Timing/Duration: today Character of Deficits: altered sensation Deficits: no difficulties Baseline/Normal Cognition: alert oriented x 3 Current Cognition: alert oriented x 3 Baseline Gait: walks w/o assistance Associated Symptoms: paresthesia, No confusion, No trouble walking Allergies/Adverse Reactions: No Known Drug Allergies Allergy (Verified 03/03/18 22:39) Home Medications: Citalopram Hydrobromide 20 mg* [ceLEXa 20 MG] 40 mg PO EVENING MEAL 07/21/17 [History] PANTOPRAZOLE 40 mg Tablet [Protonix 40MG Tablet] 40 mg PO EVENING MEAL 01/02 [History] Hx Tetanus, Diphtheria Vaccination/Date Given: Yes Hx Influenza Vaccination/Date Given: No Hx Pneumococcal Vaccination/Date Given: No Immunizations Up to Date: Yes - Review of Systems Constitutional: No Fever, No Chills Eyes: No Symptoms, Vision Changes Ears, Nose, & Throat: No Symptoms Respiratory: No Cough, No Dyspnea Cardiac: No Chest Pain, No Edema, No Syncope Abdominal/Gastrointestinal: No Abdominal Pain, No Nausea, No Vomiting, No Diarrhea Genitourinary Symptoms: No Dysuria Musculoskeletal: No Back Pain, No Neck Pain Skin: No Rash Neurological: Dizziness, Headache, Parasthesia, No Focal Weakness, No Sensory Changes, No Speech Changes Psychological: No Symptoms Endocrine: No Symptoms All Other Systems: Reviewed and Negative - Past Medical History Pertinent Past Medical History: Yes Neurological History: TIA ENT History: No Pertinent History Cardiac History: No Pertinent History Respiratory History: No Pertinent History Endocrine Medical History: No Pertinent History Musculoskeletal History: No Pertinent History GI Medical History: GERD, Ulcer History: No Pertinent History Psycho-Social History: Anxiety Female Reproductive Disorders: No Pertinent History - Past Surgical History Past Surgical History: Yes Neuro Surgical History: No Pertinent History Cardiac: No Pertinent History Respiratory: No Pertinent History Gastrointestinal: Cholecystectomy Genitourinary: No Pertinent History Musculoskeletal: Other Female Surgical History: Tubal Ligation Other Surgical History: states six cyst removed from head area - Social History Smoking Status: Never smoker Exposure to second hand smoke: No Drug Use: none Patient Lives Alone: No - Female History Hx Last Menstrual Period: february 12 Hx Now: No - Nursing Vital Signs Nursing Vital Signs: Initial Vital Signs Temperature 97.4 F 03/03/18 22:31 Pulse Rate 77 03/03/18 22:31 Respiratory Rate 18 03/03/18 22:31 Blood Pressure 160/83 03/03/18 22:31 O2 Sat by Pulse Oximetry 99 03/03/18 22:31 Pain Scale Pain Intensity 6 - [place] Coma Scale Best Eye Response ([place]): (4) open spontaneously Best Verbal Response ([place]): (5) oriented Best Motor Response ([place]): (6) obeys commands [place] Total: 15 - Physical Exam General Appearance: no apparent distress, alert Eye Exam: bilateral eye: PERRL, EOMI Ears, Nose, Throat Exam: normal ENT inspection, moist mucous membranes Neck Exam: normal inspection, non-tender, supple Respiratory: normal breath sounds, lungs clear, airway intact, No respiratory distress Cardiovascular: regular rate/rhythm, No edema Gastrointestinal: soft, No tenderness, No distention Back Exam: normal inspection Extremity Exam: normal inspection, No pedal edema Mental Status: alert, oriented x 3 lighting engineer Exam: normal hearing, normal speech, PERRL, tongue midline Coordination/Gait: normal finger to nose, normal gait Motor/Sensory: no motor deficit, no sensory deficit, no pronator drift Skin Exam: normal color, warm, dry, No rash SpO2: 99 Oxygen Delivery: Room Air - Course Nursing assessment & vital signs reviewed: Yes Ordered Tests: Active Orders 24 hr Category Date Time Status Global Supply Chain Director STAT Care 03/03/18 22:39 Active EKG-ER Only STAT Care 03/03/18 22:38 Active IV Insertion STAT Care 03/03/18 22:38 Active NPO (ED) STAT Care 03/03/18 22:38 Active CHEST 1 VIEW (PORTABLE) Stat Exams 03/03/18 22:[address] ANGIOGRAPHY NECK [CT] Stat Exams 03/03/18 23:24 Ordered CTA HEAD W AND/OR WO CONTRAST [CT] Stat Exams 03/03/18 23:24 Ordered HEAD WITHOUT CONTRAST [CT] Stat Exams 03/03/18 22:39 Taken CBC W DIFF Stat Lab 03/03/18 22:45 Completed CMP Stat Lab 03/03/18 22:45 Completed ESR [Erythrocyte Sedimentation Rate] Stat Lab 03/03/18 22:45 Completed HCG QUALITATIVE,SERUM Stat Lab 03/03/18 22:45 Completed PT INR [PROTIME WITH INR] Stat Lab 03/03/18 22:45 Completed PTT Stat Lab 03/03/18 22:45 Completed TROPONIN Q3H Lab 03/03/18 22:45 Completed TROPONIN Q3H Lab 03/04/18 01:45 Ordered TROPONIN Q3H Lab 03/04/18 04:45 Ordered TROPONIN Q3H Lab 03/04/18 07:45 Ordered TROPONIN Q3H Lab 03/04/18 10:45 Ordered Medication Summary Discontinued Medications Generic Name Dose Route Start Last Admin Trade Name Freq PRN Reason Stop Dose Admin Aspirin 81 mg 03/03/18 23:29 03/03/18 23:32 Baby Aspirin 81 Mg Chew PO 03/03/18 23:30 81 mg STAT ONE Administration Lab/Rad Data: Laboratory Result Diagrams 03/03/18 22:45 03/03/18 22:45 Laboratory Results 03/03/18 03/03/18 03/03/18 Range/Units 22:45 22:45 22:45 WBC (4.0-10.5) K/mm3 RBC (4.1-5.4) M/mm3 Hgb (12.0-16.0) gm/dl Hct (35-47) % MCV (78-100) fl MCH (26-32) pg MCHC (32-36) g/dl RDW (11.5-14.0) % Plt Count (150-450) K/mm3 MPV (6-9.5) fl Gran % (36.0-66.0) % Eos # (Auto) (0-0.5) Absolute Lymphs (auto) (1.0-4.6) Absolute Monos (auto) (0.0-1.3) Lymphocytes % (24.0-44.0) % Monocytes % (0.0-12.0) % Eosinophils % (0.00-5.0) % Basophils % (0.0-0.4) % Absolute Granulocytes (1.4-6.9) Basophils # (0-0.4) ESR 28 H (0-20) mm/hr PT 12.5 H (9.95-12.35) SECONDS INR 1.07 (0.8-3.0) APTT (25.3-37.0) SECONDS Sodium (137-145) mmol/L Potassium (3.5-5.1) mmol/L Chloride (98-107) mmol/L Carbon Dioxide (22-30) mmol/L Anion Gap (5-15) MEQ/L BUN (7-17) mg/dL Creatinine (0.52-1.04) mg/dL Estimated GFR ML/MIN Glucose (74-106) mg/dL Calcium (8.4-10.2) mg/dL Total Bilirubin (0.2-1.3) mg/dL AST (14-36) U/L ALT (0-35) U/L Alkaline Phosphatase (38-126) U/L Troponin I (0.000-0.034) ng/mL Serum Total Protein (6.3-8.2) g/dL Albumin (3.5-5.0) g/dL Serum , Qual NEGATIVE (Negative) 03/03/18 03/03/18 03/03/18 Range/Units 22:45 22:45 22:45 WBC (4.0-10.5) K/mm3 RBC (4.1-5.4) M/mm3 Hgb (12.0-16.0) gm/dl Hct (35-47) % MCV (78-100) fl MCH (26-32) pg MCHC (32-36) g/dl RDW (11.5-14.0) % Plt Count (150-450) K/mm3 MPV (6-9.5) fl Gran % (36.0-66.0) % Eos # (Auto) (0-0.5) Absolute Lymphs (auto) (1.0-4.6) Absolute Monos (auto) (0.0-1.3) Lymphocytes % (24.0-44.0) % Monocytes % (0.0-12.0) % Eosinophils % (0.00-5.0) % Basophils % (0.0-0.4) % Absolute Granulocytes (1.4-6.9) Basophils # (0-0.4) ESR (0-20) mm/hr PT (9.95-12.35) SECONDS INR (0.8-3.0) APTT 30.9 (25.3-37.0) SECONDS Sodium 140 (137-145) mmol/L Potassium 3.5 (3.5-5.1) mmol/L Chloride 103 (98-107) mmol/L Carbon Dioxide 25 (22-30) mmol/L Anion Gap 15.5 H (5-15) MEQ/L BUN 7 (7-17) mg/dL Creatinine 0.61 (0.52-1.04) mg/dL Estimated GFR > 60.0 ML/MIN Glucose 112 H (74-106) mg/dL Calcium 9.3 (8.4-10.2) mg/dL Total Bilirubin 0.20 (0.2-1.3) mg/dL AST 20 (14-36) U/L ALT 17 (0-35) U/L Alkaline Phosphatase 73 (38-126) U/L Troponin I < 0.012 (0.000-0.034) ng/mL Serum Total Protein 8.0 (6.3-8.2) g/dL Albumin 4.3 (3.5-5.0) g/dL Serum , Qual (Negative) 03/03/18 Range/Units 22:45 WBC 10.5 (4.0-10.5) K/mm3 RBC 4.71 (4.1-5.4) M/mm3 Hgb 12.4 (12.0-16.0) gm/dl Hct 38.5 (35-47) % MCV 81.7 (78-100) fl MCH 26.3 (26-32) pg MCHC 32.2 (32-36) g/dl RDW 16.8 H (11.5-14.0) % Plt Count 321 (150-450) K/mm3 MPV 11.1 H (6-9.5) fl Gran % 47.3 (36.0-66.0) % Eos # (Auto) 0.31 (0-0.5) Absolute Lymphs (auto) 4.17 (1.0-4.6) Absolute Monos (auto) 1.05 (0.0-1.3) Lymphocytes % 39.6 (24.0-44.0) % Monocytes % 10.0 (0.0-12.0) % Eosinophils % 2.9 (0.00-5.0) % Basophils % 0.2 (0.0-0.4) % Absolute Granulocytes 4.97 (1.4-6.9) Basophils # 0.02 (0-0.4) ESR (0-20) mm/hr PT (9.95-12.35) SECONDS INR (0.8-3.0) APTT (25.3-37.0) SECONDS Sodium (137-145) mmol/L Potassium (3.5-5.1) mmol/L Chloride (98-107) mmol/L Carbon Dioxide (22-30) mmol/L Anion Gap (5-15) MEQ/L BUN (7-17) mg/dL Creatinine (0.52-1.04) mg/dL Estimated GFR ML/MIN Glucose (74-106) mg/dL Calcium (8.4-10.2) mg/dL Total Bilirubin (0.2-1.3) mg/dL AST (14-36) U/L ALT (0-35) U/L Alkaline Phosphatase (38-126) U/L Troponin I (0.000-0.034) ng/mL Serum Total Protein (6.3-8.2) g/dL Albumin (3.5-5.0) g/dL Serum , Qual (Negative) - Progress Progress: improved Progress Note: 03/04/18 02:[address] scan head and CTA head and neck are both within normal limits. The patient admits to some relief of numbness but admits to mild blurry vision of the left eye. The rest of the labs are within normal limits. The patient has been admitted to Dr Peralta for workup for CVA. Pt was given a dose of ASA. - Departure Time of Disposition: 02:12 Departure Disposition: Observation Clinical Impression: CVA (cerebral vascular accident) Qualifiers: CVA mechanism: unspecified Qualified Code(s): I63.9 - Cerebral infarction, unspecified Condition: Stable Critical Care Time: Yes Critical Care Time(excluding separately billable procedures): 30-74 minutes Referrals: ANNIE PERALTA MD [Primary Care Provider] -
[2018-03-03 22:51] LABS: BASOPHIL % 0.2 % (0.0-0.4); Basophil (Absolute #) 0.02 (0-0.4); Eosinophil % 2.9 % (0.00-5.0); Eosinophil (Absolute #) 0.31 (0-0.5); Granulocyte Absolute (ANC) 4.97 (1.4-6.9); Granulocytes % 47.3 % (36.0-66.0); Hematocrit 38.5 % (35-47); Hemoglobin 12.4 gm/dl (12.0-16.0); Lymphocyte (Absolute #) 4.17 (1.0-4.6); Lymphocytes % 39.6 % (24.0-44.0); Mean Cell Volume 81.7 fl (78-100); Mean Corpuscular Hemoglobin 26.3 pg (26-32); Mean Corpuscular Hgb Concent. 32.2 g/dl (32-36); Mean Platelet Volume 11.1 fl (6-9.5); Monocyte (Absolute #) 1.05 (0.0-1.3); Platelet Count 321 K/mm3 (150-450); Red Blood Count 4.71 M/mm3 (4.1-5.4); Red Cell Distribution Width 16.8 % (11.5-14.0); White Blood Count 10.5 K/mm3 (4.0-10.5)
[2018-03-03 23:02] LABS: INR 1.07 (0.8-3.0)
[2018-03-03 23:06] LABS: ALBUMIN 4.3 g/dL (3.5-5.0); ALKALINE PHOSPHATASE 73 U/L (38-126); ANION GAP 15.5 MEQ/L (5-15); BLOOD UREA NITROGEN 7 mg/dL (7-17); CHLORIDE 103 mmol/L (98-107); Calcium 9.3 mg/dL (8.4-10.2); Carbon Dioxide 25 mmol/L (22-30); Creatinine 1 0.61 mg/dL (0.52-1.04); Glucose 112 mg/dL (74-106); Potassium 3.5 mmol/L (3.5-5.1); SGOT/AST 20 U/L (14-36); SGPT/ALT 17 U/L (0-35); SODIUM 140 mmol/L (137-145)
[2018-03-03] MEDS ORDERED: BABY ASPIRIN 81 MG CHEW PO ONE (23:29)
[2018-03-04 03:46] VITALS: O2SAT 100
[2018-03-04] MEDS ORDERED: BABY ASPIRIN 81 MG CHEW ONE (05:08)
[2018-03-04 05:54] LABS: BASOPHIL % 0.3 % (0.0-0.4); Basophil (Absolute #) 0.03 (0-0.4); Eosinophil % 2.5 % (0.00-5.0); Eosinophil (Absolute #) 0.24 (0-0.5); Granulocyte Absolute (ANC) 4.73 (1.4-6.9); Granulocytes % 49.8 % (36.0-66.0); Hematocrit 37.3 % (35-47); Lymphocyte (Absolute #) 3.71 (1.0-4.6); Mean Cell Volume 81.8 fl (78-100); Mean Corpuscular Hemoglobin 26.3 pg (26-32); Mean Corpuscular Hgb Concent. 32.2 g/dl (32-36); Mean Platelet Volume 11.6 fl (6-9.5); Monocytes % 8.4 % (0.0-12.0); Platelet Count 287 K/mm3 (150-450); Red Blood Count 4.56 M/mm3 (4.1-5.4); Red Cell Distribution Width 16.7 % (11.5-14.0); White Blood Count 9.5 K/mm3 (4.0-10.5)
[2018-03-04 05:59] LABS: ANION GAP 14.3 MEQ/L (5-15); BLOOD UREA NITROGEN 7 mg/dL (7-17); CHLORIDE 104 mmol/L (98-107); Calcium 8.9 mg/dL (8.4-10.2); Carbon Dioxide 24 mmol/L (22-30); Creatinine 1 0.62 mg/dL (0.52-1.04); Glucose 94 mg/dL (74-106); Potassium 3.4 mmol/L (3.5-5.1); SODIUM 139 mmol/L (137-145)
[2018-03-04 07:13] VITALS: BP 120/73; PULSE 58
--- NOTE | 2018-03-04 08:27 | PCM.HP ---
History of Present Illness - Chief Complaint Chief Complaint: TIA History of Present Illness: is a 43 year old female who presented to the ER last night with acute onset of left face numbness, blurry vision in the left eye and twitching of the eye. She also complained of tingling in left arm and leg. There was no slurring of the speech, no facial droop, no motor weakness. She also reported a red streak on the right cheek as well. She recently had an extensive workup for chest pain which was negative. - Review of Systems Constitutional: No Fever, No Chills Respiratory: No Cough, No Short Of Breath Cardiac: No Chest Pain, No Edema, No Syncope Abdominal/Gastrointestinal: No Abdominal Pain, No Nausea, No Vomiting, No Diarrhea Skin: No Rash Neurological: Parasthesia, No Focal Weakness All Other Systems: Reviewed and Negative Medications & Allergies Home Medications: Home Medication List Citalopram Hydrobromide 20 mg* [ceLEXa 20 MG] 40 mg PO EVENING MEAL 07/21/17 [History Confirmed 03/03/18] PANTOPRAZOLE 40 mg Tablet [Protonix 40MG Tablet] 40 mg PO EVENING MEAL 01/02 [History Confirmed 03/03/18] Albuterol Sulfate [Proair Hfa] 2 puffs IH Q4-6HPRN PRN #1 hfa.aer.ad 02/03/18 [ Rx Confirmed 03/03/18] Acetaminophen 500 mg [Tylenol Extra Strength 500 mg] 1,000 mg PO Q6H 03/04 [History Confirmed 03/04/18] Allergies/Adverse Reactions: Allergies Allergy/AdvReac Type Severity Reaction Status Date / Time No Known Drug Allergies Allergy Verified 03/03/18 22:39 - Past Medical History Past Medical History: Yes Neurological History: TIA ENT History: No Pertinent History Cardiac History: No Pertinent History Respiratory History: No Pertinent History Endocrine Medical History: No Pertinent History Musculoskelatal History: Other GI Medical History: GERD, Ulcer History: No Pertinent History Pyscho-Social History: Anxiety Reproductive Disorders: No Pertinent History Comment: 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, - Female History Hx Last Menstrual Period: february 12 Are you now?: No - Past Surgical History Past Surgical History: Yes Neuro Surgical History: No Pertinent History Cardiac History: No Pertinent History Respiratory Surgery: No Pertinent History GI Surgical History: Cholecystectomy Genitourinary Surgical Hx: No Pertinent History Musculskeletal Surgical Hx: Other Female Surgical History: Tubal Ligation Other Surgical History: states six cyst removed from head area - Social History Smoking Status: Never smoker Exposure to second hand smoke: No Alcohol: None Drug Use: none - Physical Exam Vital Signs: Vital Signs - 24 hr Temp Pulse Resp BP Pulse Ox 03/04/18 07:12 98.2 F 58 L 16 120/73 100 03/04/18 03:24 98.4 F 56 L 16 126/72 100 03/04/18 02:13 99 03/04/18 01:50 55 L 16 135/78 100 03/04/18 00:06 58 L 16 129/79 98 03/03/18 23:30 57 L 18 137/86 98 03/03/18 22:31 97.4 F 77 18 160/83 99 General Appearance: no apparent distress, alert Neurologic Exam: alert, oriented x 3, cooperative, normal mood/affect, nml cerebellar function, nml station & gait, sensation nml, No motor deficits Eye Exam: PERRL/EOMI, eyes nml inspection Neck Exam: normal inspection, non-tender, supple, full range of motion Respiratory Exam: normal breath sounds, lungs clear, No respiratory distress Cardiovascular Exam: regular rate/rhythm, normal heart sounds, normal peripheral pulses Gastrointestinal/Abdomen Exam: soft, normal bowel sounds, No tenderness, No mass Extremity Exam: normal inspection, normal range of motion, pelvis stable Skin Exam: normal color, warm, dry, No rash Results - Labs Lab/Micro Results: Lab Results-Last 24 Hours 03/04/18 03/04/18 03/04/18 Range/Units 05:00 05:00 05:00 WBC 9.5 (4.0-10.5) K/mm3 RBC 4.56 (4.1-5.4) M/mm3 Hgb 12.0 (12.0-16.0) gm/dl Hct 37.3 (35-47) % MCV 81.8 (78-100) fl MCH 26.3 (26-32) pg MCHC 32.2 (32-36) g/dl RDW 16.7 H (11.5-14.0) % Plt Count 287 (150-450) K/mm3 MPV 11.6 H (6-9.5) fl Gran % 49.8 (36.0-66.0) % Eos # (Auto) 0.24 (0-0.5) Absolute Lymphs (auto) 3.71 (1.0-4.6) Absolute Monos (auto) 0.80 (0.0-1.3) Lymphocytes % 39.0 (24.0-44.0) % Monocytes % 8.4 (0.0-12.0) % Eosinophils % 2.5 (0.00-5.0) % Basophils % 0.3 (0.0-0.4) % Absolute Granulocytes 4.73 (1.4-6.9) Basophils # 0.03 (0-0.4) Sodium 139 (137-145) mmol/L Potassium 3.4 L (3.5-5.1) mmol/L Chloride 104 (98-107) mmol/L Carbon Dioxide 24 (22-30) mmol/L Anion Gap 14.3 (5-15) MEQ/L BUN 7 (7-17) mg/dL Creatinine 0.62 (0.52-1.04) mg/dL Estimated GFR > 60.0 ML/MIN Glucose 94 (74-106) mg/dL Calcium 8.9 (8.4-10.2) mg/dL Troponin I < 0.012 (0.000-0.034) ng/mL - Radiology Impressions Radiology Exams & Impressions: Radiology Procedures Category Date Time Status MRI BRAIN W/O CONTRAST [MRI] Urgent Exams 03/04/18 07:50 Ordered Assessment/Plan (1) Numbness and tingling of left side of face Current Visit: Yes Status: Acute Assessment & Plan: with red streaking on right face resolved can't make a case for a neurological distribution since crosses the midline, will get MRI to further evaluate. Code(s): R20.0 - ANESTHESIA OF SKIN; R20.2 - PARESTHESIA OF SKIN (2) Numbness and tingling of left arm and leg Current Visit: Yes Status: Acute Code(s): R20.0 - ANESTHESIA OF SKIN; R20.2 - PARESTHESIA OF SKIN
--- NOTE | 2018-03-04 08:34 | XRAY ---
Indication: TIA. Left facial numbness. Multiple contiguous axial images obtained through the head without contrast. Comparison: None Ventriculosulcal pattern appears symmetric. Tiny remote lacunar infarct adjacent to the left caudate head. 8 mm calcified meningioma near the left vertex. No acute intracranial hemorrhage, abnormal extra-axial fluid collection, or mass effect. Fourth ventricle is midline without hydrocephalus. [place] white matter differentiation preserved. Bony calvarium intact. Visualized paranasal sinuses and mastoid air cells are clear. Impression: 1. Tiny remote lacunar infarct adjacent to the left caudate head. 2. Subcentimeter calcified meningioma left vertex. 3. No acute intracranial abnormalities. Comment: Preliminary interpretation was made by [facility]. Meningioma not reported and not a critical finding. CTDI 68.32
[2018-03-04] MEDS ORDERED: Ventolin Hfa MDI IH PRN (08:36)
[2018-03-04] MEDS ORDERED: PROVENTIL COMMON CANISTER IH PRN (08:39)
--- NOTE | 2018-03-04 08:39 | XRAY ---
Indication: TIA. Left facial numbness. Conventional contrast enhanced CTA head was performed using 80 cc Isovue 370 contrast. Two-dimensional sagittal and coronal reformatted images obtained. Comparison: None Distal internal carotid arteries are bilaterally symmetric without critical stenosis, obstruction, or AV malformation. Normal CTA appearance of the remaining [place] of [place]. Left vertebral artery is larger in size. Venous drainage unremarkable. Remaining brain is negative for abnormal enhancing intra-or extra-axial mass. CT head reported separately. Impression: Negative CTA head. Comment: Preliminary interpretation was made by [facility]. No critical discrepancy. CTDI 53.11
--- NOTE | 2018-03-04 08:44 | XRAY ---
Indication: Left facial numbness, headache, blurred vision. Comparison: February 03, 2018. Portable chest demonstrates normal heart, lungs, and bony thorax.
--- NOTE | 2018-03-04 08:44 | XRAY ---
Indication: TIA. Dizziness. Left facial numbness. Edema around left eye. Conventional contrast enhanced CTA neck was performed using 80 cc Isovue 370 contrast. Two-dimensional sagittal and coronal reformatted images obtained. Comparison: None Visualized aortic arch is normal in course and caliber with normal branching right brachiocephalic, left common carotid, and left subclavian arteries. Left and right carotid circulation are normal in CTA appearance. Vertebral arteries are bilaterally patent with the left slightly larger in size. Venous drainage unremarkable. Remaining visualized contrasted soft tissues including thyroid gland and lung apices are unremarkable. Underlying cervical spine intact. CTA head reported separately. Impression: Normal CTA neck. Dominant left vertebral artery. Comment: Preliminary interpretation was made by [facility]. No critical discrepancy. CTDI 53.11
[2018-03-04] MEDS ORDERED: TYLENOL 325 MG PO PRN (09:07)
[2018-03-04] MEDS ORDERED: Sodium Chloride 0.9% 10 ML FLUSH Syringe IV PRN (09:46)
[2018-03-04] MEDS ORDERED: Protonix 40MG Tablet PO SCH ×2 (10:00→18:00)
--- NOTE | 2018-03-04 10:17 | XRAY ---
Indication: TIA. Left facial numbness. Left eye drooping. Sagittal, coronal, and axial MRI brain was performed without contrast using T1, T2, FLAIR, diffusion, and ADC sequences. Comparison: None Ventriculosulcal pattern appears symmetric. Small 4 mm remote lacunar infarct adjacent to the left caudate head. No acute intracranial hemorrhage, abnormal extra-axial fluid collection, or mass effect. Diffusion images are negative for restricted signal. Fourth ventricle is midline without hydrocephalus. 7/8 cranial nerve complex bilaterally symmetric. Normal flow void signal within the major intracerebral circulation. Normal appearing craniocervical junction and sella turcica. Mild mucosal thickening in the inferior right maxillary sinus. Remaining paranasal sinuses are clear. Impression: 1. Remote lacunar infarct adjacent to left caudate head. 2. No acute intracranial abnormalities or evidence for evolving large vessel territorial stroke. 3. Mild right maxillary sinus disease.
--- NOTE | 2018-03-04 10:49 | PCM.DCORD ---
- Discharge Disposition: Home, Self-Care Condition: Stable Prescriptions: New Aspirin EC 81 mg [Ecotrin 81 mg] 81 mg PO DAILY #30 tablet Cefdinir 300 mg [Omnicef 300 mg] 300 mg PO BID #14 capsule Continue PANTOPRAZOLE 40 mg Tablet [Protonix 40MG Tablet] 40 mg PO EVENING MEAL Citalopram Hydrobromide 20 mg* [ceLEXa 20 MG] 40 mg PO EVENING MEAL Albuterol Sulfate [Proair Hfa] 2 puffs IH Q4-6HPRN PRN #1 [id number] PRN Reason: Cough Acetaminophen 500 mg [Tylenol Extra Strength 500 mg] 1,000 mg PO Q6H Follow up with: ANNIE PERALTA MD [Primary Care Provider] - 1 Week
[2018-03-04] MEDS ORDERED: Sodium Chloride 0.9% 10 ML FLUSH Syringe IV SCH (14:00)
[2018-03-04] MEDS ORDERED: ceLEXa 20 MG PO SCH (18:00)
== END 2018-03-04 11:55 | disposition home or self-care (01) ==
LOC: ED 22:23 → MED SURG 03-04 02:43
PROVIDERS: ADMIT Family Medicine; ATTEND Family Medicine
DX: R20.0 Anesthesia of skin (principal); R20.2 Paresthesia of skin; J32.0 Chronic maxillary sinusitis; K21.9 Gastro-esophageal reflux disease without esophagitis; F41.9 Anxiety disorder, unspecified
CPT/HCPCS: 36000; 36415; 70450; 70496; 70498; 70551; 71045; 80048; 80053; 84484; 84703; 85025; 85610; 85652; 85730; 93005; 93041; 93268; 99284; 99285; A9270-GY; G0378

== ENCOUNTER 2018-03-28 18:58 | Emergency (ER) | payer MEDICARE ==
[2018-03-28] MEDS ORDERED: TORAdol 30 mg Injection IM ONE (19:18)
[2018-03-28] MEDS ORDERED: TORAdol 30 mg Injection ONE (19:24)
--- NOTE | 2018-03-28 19:25 | ERPHSYRPT ---
- History of Present Illness Time Seen by Provider: 03/28/18 19:19 Source: patient Exam Limitations: no limitations Patient Subjective Stated Complaint: states was bitten by a small bug that has a yellow belly burning to left thigh Triage Nursing Assessment: alert and in no distress. no rash noted. breathing easy with no respiratory problems. lungs clear. did not assess bite.. shira assess with MD. Physician History: This is a 43-year-old white female arrives with complaint of pain in her left anterior thigh described as a burning symptoms occurred after she was bitten by a bug with yellow stripes while she was mowing the lawn. Patient denies any other complaints. Past medical history includes TIA, GERD, anxiety, ulcers, Past surgical history includes cholecystectomy, tubal ligation, cyst removed from her head Social history patient denies tobacco alcohol or illicit drug use Method of Injury: other (bitten by a bug) Quality: constant Severity of Pain-Max: moderate Severity of Pain-Current: mild Lower Extremities Pain: thigh: left Modifying Factors: Improves With: nothing Associated Symptoms: none Allergies/Adverse Reactions: No Known Drug Allergies Allergy (Verified 03/03/18 22:39) Home Medications: Citalopram Hydrobromide 20 mg* [ceLEXa 20 MG] 40 mg PO EVENING MEAL 07/21/17 [History] PANTOPRAZOLE 40 mg Tablet [Protonix 40MG Tablet] 40 mg PO EVENING MEAL 01/02 [History] Acetaminophen 500 mg [Tylenol Extra Strength 500 mg] 1,000 mg PO Q6H 03/04 [History] Hx Tetanus, Diphtheria Vaccination/Date Given: Yes Hx Influenza Vaccination/Date Given: No Hx Pneumococcal Vaccination/Date Given: No Immunizations Up to Date: Yes - Review of Systems Constitutional: No Fever, No Chills Eyes: No Symptoms Ears, Nose, & Throat: No Symptoms Respiratory: No Cough, No Dyspnea Cardiac: No Chest Pain, No Edema, No Syncope Abdominal/Gastrointestinal: No Abdominal Pain, No Nausea, No Vomiting, No Diarrhea Genitourinary Symptoms: No Dysuria Musculoskeletal: Other (pain left proximal thigh) Skin: No Rash Neurological: No Dizziness, No Focal Weakness, No Sensory Changes Psychological: No Symptoms Endocrine: No Symptoms (the) All Other Systems: Reviewed and Negative - Past Medical History Pertinent Past Medical History: Yes Neurological History: TIA ENT History: No Pertinent History Cardiac History: No Pertinent History Respiratory History: No Pertinent History Endocrine Medical History: No Pertinent History Musculoskeletal History: Other GI Medical History: GERD, Ulcer History: No Pertinent History Psycho-Social History: Anxiety Female Reproductive Disorders: No Pertinent History 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, - Past Surgical History Past Surgical History: Yes Neuro Surgical History: No Pertinent History Cardiac: No Pertinent History Respiratory: No Pertinent History Gastrointestinal: Cholecystectomy Genitourinary: No Pertinent History Musculoskeletal: Other Female Surgical History: Tubal Ligation Other Surgical History: states six cyst removed from head area - Social History Smoking Status: Never smoker Exposure to second hand smoke: No Drug Use: none Patient Lives Alone: No - Female History Hx Now: No - Nursing Vital Signs Nursing Vital Signs: Initial Vital Signs Temperature 97.8 F 03/28/18 19:10 Pulse Rate 86 03/28/18 19:10 Respiratory Rate 18 03/28/18 19:10 Blood Pressure 148/95 03/28/18 19:10 O2 Sat by Pulse Oximetry 97 03/28/18 19:10 Pain Scale Pain Intensity 5 - Physical Exam General Appearance: alert Eyes, Ears, Nose, Throat Exam: moist mucous membranes Neck Exam: non-tender, supple Cardiovascular/Respiratory Exam: chest non-tender, normal breath sounds, regular rate/rhythm, no respiratory distress Gastrointestinal/Abdominal Exam: non-tender, guarding Back Exam: normal inspection, No vertebral tenderness Hips Exam: bilateral: non-tender, normal inspection, normal range of motion, no evidence of injury Legs Exam: right leg: non-tender, bilateral leg: normal inspection, normal range of motion, no evidence of injury Knees Exam: bilateral knee: non-tender, normal inspection, normal range of motion, no evidence of injury, bone tenderness Ankle Exam: bilateral ankle: non-tender, normal inspection, normal range of motion, no evidence of injury Foot Exam: bilateral foot: non-tender, normal inspection, normal range of motion , no evidence of injury DTR - Lower Extremities Exam: ankle (R): 2+, ankle (L): 2+ Neuro/Tendon Exam: normal sensation, normal motor functions Mental Status Exam: alert, oriented x 3, cooperative Skin Exam: normal color, warm, dry SpO2 Interpretation: normal (97%) SpO2: 97 Oxygen Delivery: Room Air - Course Nursing assessment & vital signs reviewed: Yes Ordered Tests: Medication Summary Discontinued Medications Generic Name Dose Route Start Last Admin Trade Name Aashish PRN Reason Stop Dose Admin Ketorolac Tromethamine 60 mg 03/28/18 19:18 Toradol 30 Mg Injection IM 03/28/18 19:19 STAT ONE - Progress Progress: improved Progress Note: 03/28/18 19:23 43-year-old white female arrives with complaint of burning pain left anterior thigh after being bitten by a bug while mowing the lawn at 6:00 this evening. Patient shows an area on her left anterior thigh where she states she is having burning pain. When I look at the skin on the side and the side do not see any evidence of erythema I don't see any obvious bites. Will go ahead and give patient a shot of Toradol for pain plan home Benadryl's 50 mg orally every 6 hours packs to the area 24-48 hours Tylenol every 4 hours as needed for pain. - Departure Time of Disposition: 19:24 Departure Disposition: Home Clinical Impression: Left thigh pain Insect bite of thigh, left Qualifiers: Encounter type: initial encounter Qualified Code(s): S70.362A - Insect bite ( nonvenomous), left thigh, initial encounter; W57.XXXA - Bitten or stung by nonvenomous insect and other nonvenomous arthropods, initial encounter; W57.XXXA - Bitten or stung by nonvenomous insect and other nonvenomous arthropods, initial encounter Condition: Fair Critical Care Time: No Referrals: ANNIE PERALTA MD [Primary Care Provider] - Instructions: Insect Bites and Stings (DC) Additional Instructions: Return home. Cold packs to area 24-48 hours. Benadryl 50 mg orally every 6 hours for 2-3 days. Tylenol every 4 hours as needed for pain. Follow-up with your family doctor or return if problems. Return for acute distress or for severe symptoms.
[2018-03-28 19:48] VITALS: BP 112/68; PULSE 68; O2SAT 95
== END 2018-03-28 19:48 | disposition home or self-care (01) ==
LOC: ED 18:58
DX: M79.652 Pain in left thigh (principal); S70.362A Insect bite (nonvenomous), left thigh, initial encounter; W57.XXXA Bitten or stung by nonvenomous insect and other nonvenomous arthropods, initial encounter; Y93.H2 Activity, gardening and landscaping; Y92.007 Garden or yard of unspecified non-institutional (private) residence as the place of occurrence of the external cause
CPT/HCPCS: 96372; 99283; J1885

== ENCOUNTER 2018-05-02 23:23 | Observation (INO) | payer MEDICARE ==
[2018-05-02] MEDS ORDERED: TORAdol 30 mg Injection IV ONE (23:31)
[2018-05-02] MEDS ORDERED: BENADRYL 50 MG/ML IV ONE (23:31)
[2018-05-02] MEDS ORDERED: Reglan 10 MG/2 ML IV ONE (23:31)
--- NOTE | 2018-05-02 23:41 | ERPHSYRPT ---
- History of Present Illness Time Seen by Provider: 05/02/18 23:29 Source: patient Exam Limitations: no limitations Physician History: Pt states, she started having occipital headaches, left facial numbness, left arm weakness about 20 minutes ago, also c/o chest pain, and SOB, nausea. She had similar episode on 03/04/18, when she was admitted here, underwent brief workup and MRI of the brain, revealing remote lacunar infarct adjacent to left caudate head. She is nauseated, dry heaving, but did not vomit, denies fever, cough, no diaphoresis, or severe distress, she talks without difficulty. Timing/Duration: hour(s) (0.5) Quality: sharpness, throbbing Head Pain Location: global Severity of Pain-Max: severe Severity of Pain-Current: severe Recent Head Trauma: frequent headaches Modifying Factors: Improves With: other (none) Associated Symptoms: nausea/vomiting Previous symptoms: same symptoms as today Allergies/Adverse Reactions: No Known Drug Allergies Allergy (Verified 05/02/18 23:41) Home Medications: Citalopram Hydrobromide 20 mg* [ceLEXa 20 MG] 40 mg PO EVENING MEAL 07/21/17 [History] PANTOPRAZOLE 40 mg Tablet [Protonix 40MG Tablet] 40 mg PO EVENING MEAL 01/02 [History] Sucralfate 1 gm PO DAILY 05/02/18 [History] Hx Tetanus, Diphtheria Vaccination/Date Given: Yes Hx Influenza Vaccination/Date Given: No Hx Pneumococcal Vaccination/Date Given: No - Review of Systems Constitutional: No Symptoms Respiratory: Dyspnea Cardiac: Chest Pain Abdominal/Gastrointestinal: Nausea Neurological: Dizziness, Focal Weakness, Headache All Other Systems: Reviewed and Negative - Past Medical History Pertinent Past Medical History: Yes Neurological History: TIA ENT History: No Pertinent History Cardiac History: No Pertinent History Respiratory History: No Pertinent History Endocrine Medical History: No Pertinent History Musculoskeletal History: Other GI Medical History: GERD, Ulcer History: No Pertinent History Psycho-Social History: Anxiety Female Reproductive Disorders: No Pertinent History 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, - Past Surgical History Past Surgical History: Yes Neuro Surgical History: No Pertinent History Cardiac: No Pertinent History Respiratory: No Pertinent History Gastrointestinal: Cholecystectomy Genitourinary: No Pertinent History Musculoskeletal: Other Female Surgical History: Tubal Ligation Other Surgical History: states six cyst removed from head area - Social History Smoking Status: Never smoker Exposure to second hand smoke: No Drug Use: none Patient Lives Alone: No - Female History Hx Now: No - Nursing Vital Signs Nursing Vital Signs: Initial Vital Signs Temperature 97.9 F 05/02/18 23:26 Pulse Rate 72 05/02/18 23:26 Blood Pressure 138/89 05/02/18 23:26 O2 Sat by Pulse Oximetry 100 05/02/18 23:26 Pain Scale Pain Intensity 9 - Physical Exam General Appearance: no apparent distress Eye Exam: PERRL/EOMI, eyes nml inspection Ears, Nose, Throat Exam: normal ENT inspection, TMs normal, pharynx normal, moist mucous membranes Neck Exam: normal inspection, non-tender, supple, No carotid bruit, No JVD Respiratory Exam: normal breath sounds, lungs clear, airway intact, No chest tenderness Cardiovascular Exam: regular rate/rhythm, normal heart sounds, normal peripheral pulses, No murmur Gastrointestinal/Abdominal Exam: soft, normal bowel sounds, No tenderness, No distention, No mass, No guarding, No ecchymosis, No rebound, No organomegaly Back Exam: normal inspection, No CVA tenderness, No vertebral tenderness Extremity Exam: normal inspection Mental Status Exam: alert, oriented x 3, cooperative enterer Exam: normal speech, PERRL, abnormal pupil position, No facial asymmetry, No facial droop Coordination/Gait Exam: normal finger to nose, normal gait, normal cerebellar function Motor/Sensory Exam: no motor deficit DTR Exam: bicep (R): 2+, bicep (L): 2+, knee (R): 2+, knee (L): 2+, ankle (R): 2 +, ankle (L): 2+ Skin Exam: normal color, warm, dry, No rash Lymphatic Exam: No adenopathy SpO2 Interpretation: normal Oxygen Delivery: Room Air - Course Nursing assessment & vital signs reviewed: Yes EKG Interpreted by Me: RATE (71/min), Sinus Rhythm, NORMAL AXIS, NORMAL INTERVALS, Non-specific ST Changes, Other (unchanged from 03/03/18 except rate) - Radiology Exams Chest X-ray Interpretation: Interpreted by me, Negative - CT Exams Head CT Interpretation: Negative, Tele-radiologist Report Ordered Tests: Active Orders 24 hr Category Date Time Status EKG-ER Only STAT Care 05/02/18 23:35 Active IV Insertion STAT Care 05/02/18 23:31 Active Oxygen-ED Only NASAL CANNULA 2 lpm Care 05/02/18 23:31 Active CHEST 1 VIEW (PORTABLE) Stat Exams 05/03/18 01:57 Taken HEAD WITHOUT CONTRAST [CT] Stat Exams 05/02/18 23:32 Taken CBC W DIFF Stat Lab 05/02/18 23:56 Completed CK-Creatinine Phosphokinase Routine Lab 05/02/18 23:56 Completed CMP Stat Lab 05/02/18 23:56 Completed D-DIMER QUANTITATION Stat Lab 05/02/18 23:56 Completed Erythrocyte Sedimentation Rate Stat Lab 05/02/18 23:56 Completed HCG QUALITATIVE,SERUM Stat Lab 05/03/18 00:00 Completed HCG,QUALITATIVE URINE Stat Lab 05/02/18 23:32 Uncollected NT PRO BNP Routine Lab 05/02/18 23:56 Completed PROTIME WITH INR Stat Lab 05/02/18 23:56 Completed TROPONIN Q3H Lab 05/02/18 23:56 Completed TROPONIN Q3H Lab 05/03/18 02:45 Ordered TROPONIN Q3H Lab 05/03/18 05:45 Ordered TROPONIN Q3H Lab 05/03/18 08:45 Ordered TROPONIN Q3H Lab 05/03/18 11:45 Ordered UA W/RFX UR CULTURE Stat Lab 05/02/18 23:32 Uncollected Urine Triage Profile Stat Lab 05/02/18 23:32 Uncollected Medication Summary Discontinued Medications Generic Name Dose Route Start Last Admin Trade Name Freq PRN Reason Stop Dose Admin Diphenhydramine HCl 25 mg 05/02/18 23:31 05/02/18 23:56 Benadryl 50 Mg/Ml IV 05/02/18 23:32 25 mg STAT ONE Administration Diphenhydramine HCl Confirm 05/02/18 23:48 Benadryl 50 Mg/Ml Administered 05/02/18 23:49 Dose 50 mg .ROUTE .STK-MED ONE Ketorolac Tromethamine 30 mg 05/02/18 23:31 05/02/18 23:55 Toradol 30 Mg Injection IV 05/02/18 23:32 30 mg STAT ONE Administration Ketorolac Tromethamine Confirm 05/02/18 23:48 Toradol 30 Mg Injection Administered 05/02/18 23:49 Dose 30 mg .ROUTE .STK-MED ONE Metoclopramide HCl 10 mg 05/02/18 23:31 05/02/18 23:56 Reglan 10 Mg/2 Ml IV 05/02/18 23:32 10 mg STAT ONE Administration Metoclopramide HCl Confirm 05/02/18 23:48 Reglan 10 Mg/2 Ml Administered 05/02/18 23:49 Dose 10 mg .ROUTE .STK-MED ONE Lab/Rad Data: Laboratory Result Diagrams 05/02/18 23:56 05/02/18 23:56 Laboratory Results 05/03/18 05/02/18 05/02/18 Range/Units 00:00 23:56 23:56 WBC (4.0-10.5) K/mm3 RBC (4.1-5.4) M/mm3 Hgb (12.0-16.0) gm/dl Hct (35-47) % MCV (78-100) fl MCH (26-32) pg MCHC (32-36) g/dl RDW (11.5-14.0) % Plt Count (150-450) K/mm3 MPV (6-9.5) fl Gran % (36.0-66.0) % Eos # (Auto) (0-0.5) Absolute Lymphs (auto) (1.0-4.6) Absolute Monos (auto) (0.0-1.3) Lymphocytes % (24.0-44.0) % Monocytes % (0.0-12.0) % Eosinophils % (0.00-5.0) % Basophils % (0.0-0.4) % Absolute Granulocytes (1.4-6.9) Basophils # (0-0.4) ESR (0-20) mm/hr PT 11.3 (9.95-12.35) SECONDS INR 0.97 (0.8-3.0) D-Dimer < 215 L (215-500) ng/mL Sodium (137-145) mmol/L Potassium (3.5-5.1) mmol/L Chloride (98-107) mmol/L Carbon Dioxide (22-30) mmol/L Anion Gap (5-15) MEQ/L BUN (7-17) mg/dL Creatinine (0.52-1.04) mg/dL Estimated GFR ML/MIN Glucose (74-106) mg/dL Calcium (8.4-10.2) mg/dL Total Bilirubin (0.2-1.3) mg/dL AST (14-36) U/L ALT (0-35) U/L Alkaline Phosphatase (38-126) U/L Creatine Kinase 43 (30-135) U/L Troponin I < 0.012 (0.000-0.034) ng/mL NT-Pro-B Natriuret Pep 209 (0-450) pg/mL Serum Total Protein (6.3-8.2) g/dL Albumin (3.5-5.0) g/dL Serum , Qual NEGATIVE (Negative) 05/02/18 05/02/18 Range/Units 23:56 23:56 WBC 10.5 (4.0-10.5) K/mm3 RBC 4.29 (4.1-5.4) M/mm3 Hgb 11.2 L (12.0-16.0) gm/dl Hct 35.9 (35-47) % MCV 83.7 (78-100) fl MCH 26.1 (26-32) pg MCHC 31.2 L (32-36) g/dl RDW 17.1 H (11.5-14.0) % Plt Count 358 (150-450) K/mm3 MPV 10.6 H (6-9.5) fl Gran % 57.5 (36.0-66.0) % Eos # (Auto) 0.23 (0-0.5) Absolute Lymphs (auto) 3.24 (1.0-4.6) Absolute Monos (auto) 0.95 (0.0-1.3) Lymphocytes % 30.9 (24.0-44.0) % Monocytes % 9.1 (0.0-12.0) % Eosinophils % 2.2 (0.00-5.0) % Basophils % 0.3 (0.0-0.4) % Absolute Granulocytes 6.03 (1.4-6.9) Basophils # 0.03 (0-0.4) ESR 21 H (0-20) mm/hr PT (9.95-12.35) SECONDS INR (0.8-3.0) D-Dimer (215-500) ng/mL Sodium 142 (137-145) mmol/L Potassium 3.8 (3.5-5.1) mmol/L Chloride 104 (98-107) mmol/L Carbon Dioxide 29 (22-30) mmol/L Anion Gap 12.3 (5-15) MEQ/L BUN 12 (7-17) mg/dL Creatinine 0.63 (0.52-1.04) mg/dL Estimated GFR > 60.0 ML/MIN Glucose 102 (74-106) mg/dL Calcium 9.2 (8.4-10.2) mg/dL Total Bilirubin 0.10 L (0.2-1.3) mg/dL AST 14 (14-36) U/L ALT 15 (0-35) U/L Alkaline Phosphatase 54 (38-126) U/L Creatine Kinase (30-135) U/L Troponin I (0.000-0.034) ng/mL NT-Pro-B Natriuret Pep (0-450) pg/mL Serum Total Protein 7.5 (6.3-8.2) g/dL Albumin 4.1 (3.5-5.0) g/dL Serum , Qual (Negative) - Progress Progress: improved Air Movement: good Progress Note: 05/03/18 02:21 Pt states, her headache resolved, she is asymptomatic, no focal weakness, or slurred speech, no visual changes, she has been comfortable. I called Dr Ferrer, covering Dr Peralta, discussed our results and patient's current condition, he agreed to admit her for observation, patient was informed, she agreed. Discussed with : Andrés Will see patient in: hospital (observation) Counseled pt/family regarding: lab results, diagnosis, need for follow-up, rad results - Departure Time of Disposition: 02:22 Departure Disposition: Observation Clinical Impression: Chest pain Qualifiers: Chest pain type: unspecified Qualified Code(s): R07.9 - Chest pain, unspecified TIA (transient ischemic attack) Qualifiers: Transient cerebral ischemia type: unspecified Qualified Code(s): G45.9 - Transient cerebral ischemic attack, unspecified Condition: Stable Critical Care Time: No Referrals: ANNIE PERALTA MD [Primary Care Provider] -
[2018-05-02] MEDS ORDERED: TORAdol 30 mg Injection ONE (23:48)
[2018-05-02] MEDS ORDERED: BENADRYL 50 MG/ML ONE (23:48)
[2018-05-02] MEDS ORDERED: Reglan 10 MG/2 ML ONE (23:48)
[2018-05-03] LABS: BASOPHIL % 0.3 % (0.0-0.4); Basophil (Absolute #) 0.03 (0-0.4); Eosinophil % 2.2 % (0.00-5.0); Eosinophil (Absolute #) 0.23 (0-0.5); Granulocyte Absolute (ANC) 6.03 (1.4-6.9); Granulocytes % 57.5 % (36.0-66.0); Hematocrit 35.9 % (35-47); Hemoglobin 11.2 gm/dl (12.0-16.0); Lymphocyte (Absolute #) 3.24 (1.0-4.6); Lymphocytes % 30.9 % (24.0-44.0); Mean Cell Volume 83.7 fl (78-100); Mean Corpuscular Hemoglobin 26.1 pg (26-32); Mean Corpuscular Hgb Concent. 31.2 g/dl (32-36); Mean Platelet Volume 10.6 fl (6-9.5); Monocyte (Absolute #) 0.95 (0.0-1.3); Monocytes % 9.1 % (0.0-12.0); Platelet Count 358 K/mm3 (150-450); Red Blood Count 4.29 M/mm3 (4.1-5.4); Red Cell Distribution Width 17.1 % (11.5-14.0); White Blood Count 10.5 K/mm3 (4.0-10.5)
[2018-05-03 00:06] LABS: ALBUMIN 4.1 g/dL (3.5-5.0); ALKALINE PHOSPHATASE 54 U/L (38-126); ANION GAP 12.3 MEQ/L (5-15); BLOOD UREA NITROGEN 12 mg/dL (7-17); CHLORIDE 104 mmol/L (98-107); Calcium 9.2 mg/dL (8.4-10.2); Carbon Dioxide 29 mmol/L (22-30); Creatinine 1 0.63 mg/dL (0.52-1.04); Glucose 102 mg/dL (74-106); Potassium 3.8 mmol/L (3.5-5.1); SGOT/AST 14 U/L (14-36); SGPT/ALT 15 U/L (0-35); SODIUM 142 mmol/L (137-145); Total Protein 7.5 g/dL (6.3-8.2)
[2018-05-03 00:14] LABS: INR 0.97 (0.8-3.0)
[2018-05-03 00:16] LABS: D-DIMER QUANTITATION < 215 ng/mL (215-500)
[2018-05-03 00:17] LABS: CK-Creatinine Phosphokinase 43 U/L (30-135)
[2018-05-03 00:23] LABS: Erythrocyte Sedimentation Rate 21 mm/hr (0-20)
[2018-05-03 00:27] LABS: NT PRO BNP 209 pg/mL (0-450)
[2018-05-03 00:31] LABS: TROPONIN < 0.012 ng/mL (0.000-0.034)
[2018-05-03] MEDS ORDERED: Ecotrin 325 MG PO ONE (02:23)
[2018-05-03] MEDS ORDERED: Senokot-S Tablet PO PRN (02:24)
[2018-05-03] MEDS ORDERED: MAALOX ES 30 ML UNIT DOSE PO PRN (02:24)
[2018-05-03] MEDS ORDERED: Zofran 4 MG/2 ML VIAL IV PRN (02:24)
[2018-05-03] MEDS ORDERED: TYLENOL 325 MG PO PRN (02:24)
[2018-05-03] MEDS ORDERED: MILK OF MAGNESIA 30 ML PO PRN (02:24)
[2018-05-03 06:25] LABS: Risk Ratio 4.5
--- NOTE | 2018-05-03 08:04 | PCM.HP ---
History of Present Illness - Chief Complaint Chief Complaint: CP r/o, TIA History of Present Illness: is a 43 year old female who presented to the ER last night with chest pain, some numbness and tingling which she downplays now and states that she was having pain in her substernal chest area that was severe and radiated through to her back. she had no slurred speech, no motor weakness but apparently did have some tingling. she complains of things getting stuck in her throat when swallowing and feeling like things come back up and burn in her esophagus. she was recently admitted with chest pain and had a followup stress test that was negative. - Review of Systems Constitutional: No Fever, No Chills Respiratory: No Cough, No Short Of Breath Cardiac: Chest Pain Abdominal/Gastrointestinal: No Abdominal Pain, No Nausea, No Vomiting, No Diarrhea Genitourinary Symptoms: No Dysuria Skin: No Rash All Other Systems: Reviewed and Negative Medications & Allergies Home Medications: Home Medication List Citalopram Hydrobromide 20 mg* [ceLEXa 20 MG] 40 mg PO EVENING MEAL 07/21/17 [History Confirmed 05/02/18] PANTOPRAZOLE 40 mg Tablet [Protonix 40MG Tablet] 40 mg PO EVENING MEAL 01/02 [History Confirmed 05/02/18] Albuterol Sulfate [Proair Hfa] 2 puffs IH Q4-6HPRN PRN #1 hfa.aer.ad 02/03/18 [ Rx Confirmed 05/02/18] Aspirin EC 81 mg [Ecotrin 81 mg] 81 mg PO DAILY #30 tablet 03/04/18 [Rx Confirmed 05/02/18] Sucralfate 1 gm PO DAILY 05/02/18 [History Confirmed 05/02/18] Allergies/Adverse Reactions: Allergies Allergy/AdvReac Type Severity Reaction Status Date / Time No Known Drug Allergies Allergy Verified 05/02/18 23:41 - Past Medical History Past Medical History: Yes Neurological History: TIA ENT History: No Pertinent History Cardiac History: No Pertinent History Respiratory History: No Pertinent History Endocrine Medical History: No Pertinent History Musculoskelatal History: Other GI Medical History: GERD, Ulcer History: No Pertinent History Pyscho-Social History: Anxiety Reproductive Disorders: No Pertinent History Comment: 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 - Female History Hx Last Menstrual Period: 04/26/2018 Are you now?: No - Past Surgical History Past Surgical History: Yes Neuro Surgical History: No Pertinent History Cardiac History: No Pertinent History Respiratory Surgery: No Pertinent History GI Surgical History: Cholecystectomy Genitourinary Surgical Hx: No Pertinent History Musculskeletal Surgical Hx: Other Female Surgical History: Tubal Ligation Other Surgical History: states six cyst removed from head area - Social History Smoking Status: Never smoker Exposure to second hand smoke: No Alcohol: Occasionally Drug Use: none - Physical Exam Vital Signs: Vital Signs - 24 hr Temp Pulse Resp BP Pulse Ox 05/03/18 07:31 97.5 F 62 18 103/58 97 05/03/18 03:13 97.9 F 65 17 120/69 97 05/02/18 23:26 97.9 F 72 138/89 100 General Appearance: no apparent distress, alert Eye Exam: PERRL/EOMI, eyes nml inspection Respiratory Exam: normal breath sounds, lungs clear, No respiratory distress Cardiovascular Exam: regular rate/rhythm, normal heart sounds, normal peripheral pulses Gastrointestinal/Abdomen Exam: soft, normal bowel sounds, No tenderness, No mass Extremity Exam: normal inspection, normal range of motion, pelvis stable Skin Exam: normal color, warm, dry, No rash Results - Labs Lab/Micro Results: Lab Results-Last 24 Hours 05/02/18 05/02/18 05/02/18 Range/Units 23:56 23:56 23:56 WBC 10.5 (4.0-10.5) K/mm3 RBC 4.29 (4.1-5.4) M/mm3 Hgb 11.2 L (12.0-16.0) gm/dl Hct 35.9 (35-47) % MCV 83.7 (78-100) fl MCH 26.1 (26-32) pg MCHC 31.2 L (32-36) g/dl RDW 17.1 H (11.5-14.0) % Plt Count 358 (150-450) K/mm3 MPV 10.6 H (6-9.5) fl Gran % 57.5 (36.0-66.0) % Eos # (Auto) 0.23 (0-0.5) Absolute Lymphs (auto) 3.24 (1.0-4.6) Absolute Monos (auto) 0.95 (0.0-1.3) Lymphocytes % 30.9 (24.0-44.0) % Monocytes % 9.1 (0.0-12.0) % Eosinophils % 2.2 (0.00-5.0) % Basophils % 0.3 (0.0-0.4) % Absolute Granulocytes 6.03 (1.4-6.9) Basophils # 0.03 (0-0.4) ESR 21 H (0-20) mm/hr PT 11.3 (9.95-12.35) SECONDS INR 0.97 (0.8-3.0) D-Dimer < 215 L (215-500) ng/mL Sodium 142 (137-145) mmol/L Potassium 3.8 (3.5-5.1) mmol/L Chloride 104 (98-107) mmol/L Carbon Dioxide 29 (22-30) mmol/L Anion Gap 12.3 (5-15) MEQ/L BUN 12 (7-17) mg/dL Creatinine 0.63 (0.52-1.04) mg/dL Estimated GFR > 60.0 ML/MIN Glucose 102 (74-106) mg/dL Calcium 9.2 (8.4-10.2) mg/dL Total Bilirubin 0.10 L (0.2-1.3) mg/dL AST 14 (14-36) U/L ALT 15 (0-35) U/L Alkaline Phosphatase 54 (38-126) U/L Creatine Kinase (30-135) U/L Troponin I (0.000-0.034) ng/mL NT-Pro-B Natriuret Pep (0-450) pg/mL Serum Total Protein 7.5 (6.3-8.2) g/dL Albumin 4.1 (3.5-5.0) g/dL Triglycerides (30-150) mg/dL Cholesterol (50-200) mg/dL LDL Cholesterol (30-100) mg/dL HDL Cholesterol (40-60) mg/dL Heart Disease Risk Ratio Serum , Qual (Negative) 05/02/18 05/03/18 05/03/18 Range/Units 23:56 00:00 03:03 WBC (4.0-10.5) K/mm3 RBC (4.1-5.4) M/mm3 Hgb (12.0-16.0) gm/dl Hct (35-47) % MCV (78-100) fl MCH (26-32) pg MCHC (32-36) g/dl RDW (11.5-14.0) % Plt Count (150-450) K/mm3 MPV (6-9.5) fl Gran % (36.0-66.0) % Eos # (Auto) (0-0.5) Absolute Lymphs (auto) (1.0-4.6) Absolute Monos (auto) (0.0-1.3) Lymphocytes % (24.0-44.0) % Monocytes % (0.0-12.0) % Eosinophils % (0.00-5.0) % Basophils % (0.0-0.4) % Absolute Granulocytes (1.4-6.9) Basophils # (0-0.4) ESR (0-20) mm/hr PT (9.95-12.35) SECONDS INR (0.8-3.0) D-Dimer (215-500) ng/mL Sodium (137-145) mmol/L Potassium (3.5-5.1) mmol/L Chloride (98-107) mmol/L Carbon Dioxide (22-30) mmol/L Anion Gap (5-15) MEQ/L BUN (7-17) mg/dL Creatinine (0.52-1.04) mg/dL Estimated GFR ML/MIN Glucose (74-106) mg/dL Calcium (8.4-10.2) mg/dL Total Bilirubin (0.2-1.3) mg/dL AST (14-36) U/L ALT (0-35) U/L Alkaline Phosphatase (38-126) U/L Creatine Kinase 43 (30-135) U/L Troponin I < 0.012 < 0.012 (0.000-0.034) ng/mL NT-Pro-B Natriuret Pep 209 (0-450) pg/mL Serum Total Protein (6.3-8.2) g/dL Albumin (3.5-5.0) g/dL Triglycerides (30-150) mg/dL Cholesterol (50-200) mg/dL LDL Cholesterol (30-100) mg/dL HDL Cholesterol (40-60) mg/dL Heart Disease Risk Ratio Serum , Qual NEGATIVE (Negative) 05/03/18 05/03/18 Range/Units 05:30 05:30 WBC (4.0-10.5) K/mm3 RBC (4.1-5.4) M/mm3 Hgb (12.0-16.0) gm/dl Hct (35-47) % MCV (78-100) fl MCH (26-32) pg MCHC (32-36) g/dl RDW (11.5-14.0) % Plt Count (150-450) K/mm3 MPV (6-9.5) fl Gran % (36.0-66.0) % Eos # (Auto) (0-0.5) Absolute Lymphs (auto) (1.0-4.6) Absolute Monos (auto) (0.0-1.3) Lymphocytes % (24.0-44.0) % Monocytes % (0.0-12.0) % Eosinophils % (0.00-5.0) % Basophils % (0.0-0.4) % Absolute Granulocytes (1.4-6.9) Basophils # (0-0.4) ESR (0-20) mm/hr PT (9.95-12.35) SECONDS INR (0.8-3.0) D-Dimer (215-500) ng/mL Sodium (137-145) mmol/L Potassium (3.5-5.1) mmol/L Chloride (98-107) mmol/L Carbon Dioxide (22-30) mmol/L Anion Gap (5-15) MEQ/L BUN (7-17) mg/dL Creatinine (0.52-1.04) mg/dL Estimated GFR ML/MIN Glucose (74-106) mg/dL Calcium (8.4-10.2) mg/dL Total Bilirubin (0.2-1.3) mg/dL AST (14-36) U/L ALT (0-35) U/L Alkaline Phosphatase (38-126) U/L Creatine Kinase (30-135) U/L Troponin I < 0.012 (0.000-0.034) ng/mL NT-Pro-B Natriuret Pep (0-450) pg/mL Serum Total Protein (6.3-8.2) g/dL Albumin (3.5-5.0) g/dL Triglycerides 128 (30-150) mg/dL Cholesterol 162 (50-200) mg/dL LDL Cholesterol 96 (30-100) mg/dL HDL Cholesterol 36 L (40-60) mg/dL Heart Disease Risk Ratio 4.5 Serum , Qual (Negative) - Radiology Impressions Radiology Exams & Impressions: Radiology Procedures Category Date Time Status CHEST 1 VIEW (PORTABLE) Stat Exams 05/03/18 01:57 Taken HEAD WITHOUT CONTRAST [CT] Stat Exams 05/02/18 23:32 Taken - Other Procedures and Tests Respiratory Therapy 05/03/18 08:15 EKG ROUTINE 05/04/18 05:00 EKG DAILY 05/05/18 05:00 EKG DAILY 05/06/18 05:00 EKG DAILY Assessment/Plan (1) Dysphagia Current Visit: Yes Status: Acute Assessment & Plan: will consult surgery, may need egd and possible dilation. patient has had a negative cardiac workup. Code(s): R13.10 - DYSPHAGIA, UNSPECIFIED (2) Chest pain Current Visit: Yes Status: Acute Qualifiers: Chest pain type: unspecified Qualified Code(s): R07.9 - Chest pain, unspecified Code(s): R07.9 - CHEST PAIN, UNSPECIFIED (3) Numbness and tingling of left side of face Current Visit: No Status: Acute Onset Date: ~03/04/18 Code(s): R20.0 - ANESTHESIA OF SKIN; R20.2 - PARESTHESIA OF SKIN
[2018-05-03] MEDS ORDERED: Ventolin Hfa MDI IH PRN (08:37)
[2018-05-03] MEDS ORDERED: PROVENTIL COMMON CANISTER IH PRN (08:40)
--- NOTE | 2018-05-03 08:42 | XRAY ---
Indication: Chest pain. Comparison: March 03, 2018. Portable chest remains clear. Heart and mediastinal structures within normal limits. Bony thorax intact. No new/acute findings. Impression: Stable nonacute chest.
--- NOTE | 2018-05-03 08:44 | XRAY ---
Indication: Headache, nausea, and dizziness. No known injury. Multiple contiguous axial images obtained through the head without contrast. Comparison: March 03, 2018. Stable tiny remote lacunar infarct adjacent to the left caudate head. No acute intracranial hemorrhage, abnormal extra-axial fluid collection, or mass effect. Fourth ventricle is midline without hydrocephalus. Sanabria-white matter differentiation preserved. Bony calvarium intact. Visualized paranasal sinuses and mastoid air cells are clear. Impression: Stable tiny lacunar infarct adjacent to the left caudate head. No new or acute intracranial abnormalities. Comment: Preliminary interpretation was made by [facility]. No discrepancy. CT DI 68.32
[2018-05-03] MEDS ORDERED: Sodium Chloride 0.9% 10 ML FLUSH Syringe IV PRN (09:20)
[2018-05-03] MEDS ORDERED: Ecotrin 325 MG PO SCH (10:00)
[2018-05-03] MEDS ORDERED: Carafate 1 GM PO SCH (10:00)
[2018-05-03] MEDS ORDERED: ECOTRIN 81 MG PO SCH (10:00)
[2018-05-03 11:43] VITALS: BP 124/79; PULSE 65; O2SAT 98
--- NOTE | 2018-05-03 13:45 | PCM.DS ---
Discharge Summary Date of Admission: 05/03/18 02:37 Admitting Physician: ANNIE PERALTA Consults: Consults on Case 05/03/18 07:58 Consult Surgery ROUTINE Primary Care Provider: ANNIE PERALTA Allergies Allergies No Known Drug Allergies Allergy (Verified 05/02/18 23:41) Hospital Summary - Hospital Course Hospital Course: patient was admitted with chest pain, has had a negative workup including lexiscan. having difficulty swallowing and heartburn, seen by surgery and planning egd in a week and hold aspirin. will refer to outpatient cardiology and surgery for consult. patient refused troponin testing this morning so full rule out not completed due to her noncompliance. - Vitals & Intake/Output Vital Signs: Vital Signs Temperature 98.3 F 05/03/18 11:42 Pulse Rate 65 05/03/18 11:42 Respiratory Rate 18 05/03/18 11:42 Blood Pressure 124/79 05/03/18 11:42 O2 Sat by Pulse Oximetry 98 05/03/18 11:42 Intake & Output: Intake & Output 05/01/18 05/02/18 05/03/18 05/04/18 11:59 11:59 11:59 11:59 Intake Total 60 0 Balance 60 0 Weight 74.3 kg - Lab Result Diagrams: 05/02/18 23:56 05/02/18 23:56 Lab Results-Last 24 Hrs: Lab Results-Last 24 Hours 05/02/18 05/02/18 05/02/18 Range/Units 23:56 23:56 23:56 WBC 10.5 (4.0-10.5) K/mm3 RBC 4.29 (4.1-5.4) M/mm3 Hgb 11.2 L (12.0-16.0) gm/dl Hct 35.9 (35-47) % MCV 83.7 (78-100) fl MCH 26.1 (26-32) pg MCHC 31.2 L (32-36) g/dl RDW 17.1 H (11.5-14.0) % Plt Count 358 (150-450) K/mm3 MPV 10.6 H (6-9.5) fl Gran % 57.5 (36.0-66.0) % Eos # (Auto) 0.23 (0-0.5) Absolute Lymphs (auto) 3.24 (1.0-4.6) Absolute Monos (auto) 0.95 (0.0-1.3) Lymphocytes % 30.9 (24.0-44.0) % Monocytes % 9.1 (0.0-12.0) % Eosinophils % 2.2 (0.00-5.0) % Basophils % 0.3 (0.0-0.4) % Absolute Granulocytes 6.03 (1.4-6.9) Basophils # 0.03 (0-0.4) ESR 21 H (0-20) mm/hr PT 11.3 (9.95-12.35) SECONDS INR 0.97 (0.8-3.0) D-Dimer < 215 L (215-500) ng/mL Sodium 142 (137-145) mmol/L Potassium 3.8 (3.5-5.1) mmol/L Chloride 104 (98-107) mmol/L Carbon Dioxide 29 (22-30) mmol/L Anion Gap 12.3 (5-15) MEQ/L BUN 12 (7-17) mg/dL Creatinine 0.63 (0.52-1.04) mg/dL Estimated GFR > 60.0 ML/MIN Glucose 102 (74-106) mg/dL Calcium 9.2 (8.4-10.2) mg/dL Total Bilirubin 0.10 L (0.2-1.3) mg/dL AST 14 (14-36) U/L ALT 15 (0-35) U/L Alkaline Phosphatase 54 (38-126) U/L Creatine Kinase (30-135) U/L Troponin I (0.000-0.034) ng/mL NT-Pro-B Natriuret Pep (0-450) pg/mL Serum Total Protein 7.5 (6.3-8.2) g/dL Albumin 4.1 (3.5-5.0) g/dL Triglycerides (30-150) mg/dL Cholesterol (50-200) mg/dL LDL Cholesterol (30-100) mg/dL HDL Cholesterol (40-60) mg/dL Heart Disease Risk Ratio Serum , Qual (Negative) 05/02/18 05/03/18 05/03/18 Range/Units 23:56 00:00 03:03 WBC (4.0-10.5) K/mm3 RBC (4.1-5.4) M/mm3 Hgb (12.0-16.0) gm/dl Hct (35-47) % MCV (78-100) fl MCH (26-32) pg MCHC (32-36) g/dl RDW (11.5-14.0) % Plt Count (150-450) K/mm3 MPV (6-9.5) fl Gran % (36.0-66.0) % Eos # (Auto) (0-0.5) Absolute Lymphs (auto) (1.0-4.6) Absolute Monos (auto) (0.0-1.3) Lymphocytes % (24.0-44.0) % Monocytes % (0.0-12.0) % Eosinophils % (0.00-5.0) % Basophils % (0.0-0.4) % Absolute Granulocytes (1.4-6.9) Basophils # (0-0.4) ESR (0-20) mm/hr PT (9.95-12.35) SECONDS INR (0.8-3.0) D-Dimer (215-500) ng/mL Sodium (137-145) mmol/L Potassium (3.5-5.1) mmol/L Chloride (98-107) mmol/L Carbon Dioxide (22-30) mmol/L Anion Gap (5-15) MEQ/L BUN (7-17) mg/dL Creatinine (0.52-1.04) mg/dL Estimated GFR ML/MIN Glucose (74-106) mg/dL Calcium (8.4-10.2) mg/dL Total Bilirubin (0.2-1.3) mg/dL AST (14-36) U/L ALT (0-35) U/L Alkaline Phosphatase (38-126) U/L Creatine Kinase 43 (30-135) U/L Troponin I < 0.012 < 0.012 (0.000-0.034) ng/mL NT-Pro-B Natriuret Pep 209 (0-450) pg/mL Serum Total Protein (6.3-8.2) g/dL Albumin (3.5-5.0) g/dL Triglycerides (30-150) mg/dL Cholesterol (50-200) mg/dL LDL Cholesterol (30-100) mg/dL HDL Cholesterol (40-60) mg/dL Heart Disease Risk Ratio Serum , Qual NEGATIVE (Negative) 05/03/18 05/03/18 Range/Units 05:30 05:30 WBC (4.0-10.5) K/mm3 RBC (4.1-5.4) M/mm3 Hgb (12.0-16.0) gm/dl Hct (35-47) % MCV (78-100) fl MCH (26-32) pg MCHC (32-36) g/dl RDW (11.5-14.0) % Plt Count (150-450) K/mm3 MPV (6-9.5) fl Gran % (36.0-66.0) % Eos # (Auto) (0-0.5) Absolute Lymphs (auto) (1.0-4.6) Absolute Monos (auto) (0.0-1.3) Lymphocytes % (24.0-44.0) % Monocytes % (0.0-12.0) % Eosinophils % (0.00-5.0) % Basophils % (0.0-0.4) % Absolute Granulocytes (1.4-6.9) Basophils # (0-0.4) ESR (0-20) mm/hr PT (9.95-12.35) SECONDS INR (0.8-3.0) D-Dimer (215-500) ng/mL Sodium (137-145) mmol/L Potassium (3.5-5.1) mmol/L Chloride (98-107) mmol/L Carbon Dioxide (22-30) mmol/L Anion Gap (5-15) MEQ/L BUN (7-17) mg/dL Creatinine (0.52-1.04) mg/dL Estimated GFR ML/MIN Glucose (74-106) mg/dL Calcium (8.4-10.2) mg/dL Total Bilirubin (0.2-1.3) mg/dL AST (14-36) U/L ALT (0-35) U/L Alkaline Phosphatase (38-126) U/L Creatine Kinase (30-135) U/L Troponin I < 0.012 (0.000-0.034) ng/mL NT-Pro-B Natriuret Pep (0-450) pg/mL Serum Total Protein (6.3-8.2) g/dL Albumin (3.5-5.0) g/dL Triglycerides 128 (30-150) mg/dL Cholesterol 162 (50-200) mg/dL LDL Cholesterol 96 (30-100) mg/dL HDL Cholesterol 36 L (40-60) mg/dL Heart Disease Risk Ratio 4.5 Serum , Qual (Negative) - Radiology Exams Ordered Rad Exams-Entire Visit: Radiology Procedures Category Date Time Status CHEST 1 VIEW (PORTABLE) Stat Exams 05/03/18 01:57 Completed HEAD WITHOUT CONTRAST [CT] Stat Exams 05/02/18 23:32 Completed - Procedures and Test Procedures and Tests throughout Hospitalization: Therapy Orders & Screens 05/03/18 02:24 EKG Q8HX2,QAMX3,PRN Comment: 05/03/18 08:15 EKG ROUTINE Comment: Diagnosis: CP r/o, TIA 05/04/18 05:00 EKG DAILY Comment: Diagnosis: CP r/o, TIA 05/05/18 05:00 EKG DAILY Comment: Diagnosis: CP r/o, TIA 05/06/18 05:00 EKG DAILY Comment: Diagnosis: CP r/o, TIA Discharge Exam General Appearance: no apparent distress, alert Skin Exam: normal color, warm, dry Respiratory Exam: normal breath sounds, lungs clear, No respiratory distress Cardiovascular Exam: regular rate/rhythm, normal heart sounds Gastrointestinal/Abdomen Exam: soft, No tenderness, No mass Extremity Exam: normal inspection, normal range of motion Final Diagnosis/Problem List - Final Discharge Diagnosis/Problem (1) Dysphagia Current Visit: Yes Status: Acute Onset Date: ~05/03/18 (2) Chest pain Current Visit: Yes Status: Acute Onset Date: ~05/03/18 (3) Numbness and tingling of left side of face Current Visit: Yes Status: Acute Onset Date: ~03/03/18 - Discharge Disposition: Home, Self-Care Condition: Stable Prescriptions: Continue PANTOPRAZOLE 40 mg Tablet [Protonix 40MG Tablet] 40 mg PO EVENING MEAL Citalopram Hydrobromide 20 mg* [ceLEXa 20 MG] 40 mg PO EVENING MEAL Albuterol Sulfate [Proair Hfa] 2 puffs IH Q4-6HPRN PRN #1 hfa.aer.ad PRN Reason: Cough Sucralfate 1 gm PO DAILY Discontinued Aspirin EC 81 mg [Ecotrin 81 mg] 81 mg PO DAILY #30 tablet Follow up with: TYSON SAN [COURTESY STAFF] - 05/12/18 1:20 pm (Patient to see in t.h. office 05/12/18 also bring with you your Ins Card and Med List.) SHELLY CORRAL [CONSULTING PHYSICIAN] - 1 Week
[2018-05-03] MEDS ORDERED: Sodium Chloride 0.9% 10 ML FLUSH Syringe IV SCH (14:00)
[2018-05-03] MEDS ORDERED: Protonix 40MG Tablet PO SCH (18:00)
[2018-05-03] MEDS ORDERED: ceLEXa 20 MG PO SCH (18:00)
--- NOTE | 2018-05-04 09:02 | CONS ---
CONSULT DATE: 05/03/2018 The patient is seen for Dr. Adorno who is refrigeration operator for our group today. HISTORY: The patient was admitted with headaches, weakness and numbness of the face, some nausea, pain radiating up to her chest. Cardiac etiology was ruled out. PAST MEDICAL HISTORY: Transient ischemic attack in the past. PAST SURGICAL HISTORY: Cholecystectomy in the past. Tubal in the past. Cyst removed from the head in the past. She denies prior upper endoscopy. MEDICATIONS: She has been on Celexa, Protonix, Sulcralfate and she has been taking aspirin as well. ALLERGIES: NKDA. SOCIAL HISTORY: No smoking or alcohol abuse. FAMILY HISTORY: Negative for esophageal or stomach cancer according to the patient. REVIEW OF SYSTEMS: Twelve systems reviewed per admission assessment. No chest pain or palpitations other systems negative or noncontributory as above and per preadmission questionnaire. She had some pain radiating into her chest where she had her symptoms. She is feeling a little better. She has had trouble maintaining p.o. intake with things seem to be get stuck distal esophagus area. She complains of dysphagia. PHYSICAL EXAMINATION: She is afebrile, vital signs stable. GENERAL: No acute distress. HEENT: Sclera nonicteric. NECK: No JVD. CHEST: Equal excursion, nonlabored breathing. CVS: Regular rhythm and pulse. ABDOMEN: Soft, tenderness epigastrium. No peritoneal signs. EXTREMITIES: No significant edema. NEURO: Alert, moving extremities grossly symmetrically. No gross motor deficits noted. LAB DATA AND TESTS: White blood cell count 10.5, hemoglobin 11, PLT 358,000. IMPRESSION: Some dysphagia. She is tolerating some p.o. She has been on aspirin. I feel ultimately she would benefit from upper endoscopy possible dilatation pending on operative findings. However as this is not emergent and is tolerating some p.o., the patient agrees it would better to set her up as an outpatient and hold the aspirin for 5 to 7 days preoperatively and plan on elective EGD with possible biopsy and possible dilatation depending on operative findings. Risks and benefits explained in detail but not limited to bleeding or infection, risk of bowel injury or perforation possibly requiring open procedure, risk of missed or nondiagnosis or incomplete exam possibly requiring barium swallow, other studies or procedures, possibly using different types of dilators in the future. She understands that if dilatation improves things she may need it repeated again down the road. She also understands if it is more of a functional or neurological issue then dilatation sometimes does not improve the situation much. She may need further work up and/or testing, other studies or referrals. She understands and agrees to the planned procedure. She prefers to be done electively when she is off her aspirin. She understands the risk of bleeding and infection, risk of bowel injury or perforation possibly requiring open procedure, ongoing morbidity/mortality but not limited to as well as risk of sedation. Will proceed as an outpatient of she holds her aspirin for outpatient EGD possible biopsy possible dilatation.
== END 2018-05-03 14:46 | disposition home or self-care (01) ==
LOC: ED 23:23 → MED SURG 05-03 02:37
PROVIDERS: ADMIT Family Medicine; ATTEND Family Medicine
DX: R07.89 Other chest pain (principal); R20.0 Anesthesia of skin; R20.2 Paresthesia of skin; Z86.73 Personal history of transient ischemic attack (TIA), and cerebral infarction without residual deficits; K21.9 Gastro-esophageal reflux disease without esophagitis; F41.9 Anxiety disorder, unspecified
CPT/HCPCS: 36000; 36415; 70450; 71045; 80053; 80061; 82550; 83721; 83880; 84484; 84703; 85025; 85379; 85610; 85652; 93005; 93268; 96374; 96375; 99285; J1200; J1885; A9270-GY; G0378

== ENCOUNTER 2021-02-20 05:59 | Day surgery (SDC) | payer MEDICARE ==
[2021-02-20] MEDS ORDERED: Lactated Ringers 1,000 ML IV SCH (07:00)
[2021-02-20] MEDS ORDERED: Versed 2 MG/2 ML Injection IV ONE (07:12)
[2021-02-20] MEDS ORDERED: DIPRIVAN 200 MG/20 ML IV ONE ×2 (08:02→08:29)
[2021-02-20] MEDS ORDERED: Xylocaine-Mpf 2% 5 Ml Vial ONE (08:03)
[2021-02-20] MEDS ORDERED: Xopenex 1.25 MG/0.5 ML UD NEBULE IH ONE (08:51)
[2021-02-20] MEDS ORDERED: Sodium Chloride 3 ML UD NEBULES IH ONE (08:52)
[2021-02-20 09:41] VITALS: BP 124/82; PULSE 70; O2SAT 96
--- NOTE | 2021-02-20 11:07 | OP ---
SURGERY DATE/TIME: 02/20/2021 0805 PREOPERATIVE DIAGNOSES: 1) Abdominal pain. 2) Persistent gastroesophageal reflux disease. 3) Anemia. POSTOPERATIVE DIAGNOSES: 1) Normal EGD. 2) Small sessile sigmoid colon polyp. PROCEDURES: 1) Diagnostic EGD. 2) Colonoscopy. SURGEON: Samm Orozco M.D. ANESTHESIA: MAC by José Miguel Brewer CRNA. ESTIMATED BLOOD LOSS: Minimal. SPECIMENS: Cold forceps polypectomy from the sigmoid colon polyp. DESCRIPTION OF PROCEDURE: After informed written consent was obtained, the patient was taken to the endoscopy suite. She is placed in the left lateral decubitus position and a bite block inserted. Anesthesia titrated to desired level of consciousness. The endoscope was inserted in the posterior oropharynx. Under direct visualization the esophagus is easily traversed. It had a normal mucosal appearance. The gastroesophageal junction likewise had a normal mucosal appearance. Upon entering the stomach there is normal rugated gastric mucosa free of any lesions or defects. The gastric antrum showed no evidence of ulceration or bleeding. The pylorus is traversed. The first and second portions of the duodenum had a normal mucosal appearance. Upon withdrawal again all mucosal structures revealed no gross abnormalities. The scope was removed and then the scopes were switched. Digital rectal exam showed normal sphincter tone and no internal lesions. The colonoscope is inserted into the rectum and sequentially the entire colonic mucosa was traversed. The level of the cecum was reached and verified with direct visualization of the ileocecal valve. Upon withdrawal careful mucosal inspection revealed no gross abnormalities until the distal sigmoid colon. There was a small sessile polyp which was grasped with forceps and removed in cold fashion with minimal blood loss and sent for pathology testing. Prior to withdrawal retroflexion was performed and showed internal lesions. The scope was removed and the patient was transferred to the recovery room in good condition.
== END 2021-02-20 10:05 | disposition home or self-care (01) ==
LOC: SDC 05:59
PROVIDERS: ATTEND Family Medicine
DX: R10.9 Unspecified abdominal pain (principal); K63.5 Polyp of colon; D64.9 Anemia, unspecified; K21.9 Gastro-esophageal reflux disease without esophagitis; F41.9 Anxiety disorder, unspecified; I10 Essential (primary) hypertension; Z79.899 Other long term (current) drug therapy
CPT/HCPCS: 36415; 84702; 94640; J2250; J2704; A9270-GY

== ENCOUNTER 2021-10-21 23:50 | Emergency (ER) | payer MEDICARE ==
[2021-10-22 00:13] VITALS: O2SAT 98
[2021-10-22] MEDS ORDERED: KEFLEX 500 MG PO ONE (01:51)
--- NOTE | 2021-10-22 01:57 | ERPHSYRPT ---
- History of Present Illness Time Seen by Provider: 10/22/21 01:30 Source: patient Exam Limitations: no limitations Patient Subjective Stated Complaint: Patient is complaining of a knot in her right groin area. Triage Nursing Assessment: The patient is alert and oriented, and voices no other complaints other than a knot that is bothering her on her right groin. The area is on the outer right labia and feels like a marble sized knot. There is no redness or discharge from areas. Physician History: This is a 46-year-old white female who noticed a knot in her right groin today. She took Tylenol naproxen for it. She kept thinking and worrying that it may be a cancer of some type and therefore she came in to have it evaluated. She has not had any fevers or chills or any drainage from the site. She is never had any like this before. Patient states that she has an appointment to see her primary care doctor, Dr. Peralta on 10/24/2021 Timing/Duration: today Quality: painful Severity: mild (Mild) Location: other (Right groin) Possible Causes: no cause identified Associated Symptoms: swelling/mass/lumps (Right groin) Allergies/Adverse Reactions: No Known Drug Allergies Allergy (Verified 02/20/21 06:42) Home Medications: Citalopram Hydrobromide 20 mg* [ceLEXa 20 MG] 40 mg PO EVENING MEAL 07/21/17 [History] PANTOPRAZOLE 40 mg Tablet [Protonix 40MG Tablet] 40 mg PO EVENING MEAL 07/21/17 [History] Albuterol Common Canister [Ventolin Common Canister] 1 inh.kit PO BID 08/31/19 [History] Buspirone HCl 5 mg [Buspar 5 mg] 10 mg PO BID 08/31/19 [History] Ferrous Sulfate 325 mg PO BID 02/18/21 [History] Gabapentin [Neurontin] 600 mg PO TID 02/18/21 [History] Omeprazole/Sodium Bicarbonate [Zegerid Otc 20-1,100 mg Cap] 1 each PO HS 02/18/21 [History] SUMAtriptan succinate [Imitrex] 100 mg PO DAILY PRN PRN 02/18/21 [History] Hx Tetanus, Diphtheria Vaccination/Date Given: Yes Hx Influenza Vaccination/Date Given: No Hx Pneumococcal Vaccination/Date Given: No Immunizations Up to Date: Yes Travel Risk - International Travel Have you traveled outside of the country in past 3 weeks: No - Coronavirus Screening Are you exhibiting any of the following symptoms?: No Close contact with a COVID-19 positive Pt in past 14-21 Days: No - Vaccine Status Have you recieved a Covid-19 vaccination: No - Review of Systems Constitutional: No Symptoms Eyes: No Symptoms Ears, Nose, & Throat: No Symptoms Respiratory: No Symptoms Cardiac: No Symptoms Abdominal/Gastrointestinal: No Symptoms Genitourinary Symptoms: No Symptoms Musculoskeletal: No Symptoms Skin: Other (Subcutaneous half centimeter in diameter mass right outer labial mass) Neurological: No Symptoms Psychological: No Symptoms Endocrine: No Symptoms Hematologic/Lymphatic: No Symptoms Immunological/Allergic: No Symptoms All Other Systems: Reviewed and Negative - Past Medical History Pertinent Past Medical History: No Neurological History: TIA ENT History: No Pertinent History Cardiac History: No Pertinent History Respiratory History: No Pertinent History Endocrine Medical History: No Pertinent History Musculoskeletal History: No Pertinent History, Arthritis, Fibromyalgia, Other GI Medical History: Ulcer, GERD History: No Pertinent History Psycho-Social History: Anxiety, Depression Female Reproductive Disorders: No Pertinent History Other Medical History: Anemia - Past Surgical History Past Surgical History: Yes Neuro Surgical History: No Pertinent History Cardiac: No Pertinent History Respiratory: No Pertinent History Gastrointestinal: Cholecystectomy Genitourinary: No Pertinent History Musculoskeletal: No Pertinent History Female Surgical History: Tubal Ligation Other Surgical History: REMOVED CYSTS ON HEAD IN 2013 - Social History Smoking Status: Never smoker Exposure to second hand smoke: No Drug Use: none Patient Lives Alone: Yes - Female History Hx Last Menstrual Period: unsure Hx Now: No - Nursing Vital Signs Nursing Vital Signs: Initial Vital Signs Temperature 97.0 F 10/22/21 00:07 Pulse Rate 72 10/22/21 00:07 Respiratory Rate 16 10/22/21 00:07 Blood Pressure 136/85 10/22/21 00:07 O2 Sat by Pulse Oximetry 98 10/22/21 00:07 Pain Scale Pain Intensity 5 - Physical Exam General Appearance: no apparent distress, alert, anxiety Eye Exam: PERRL/EOMI, eyes nml inspection Ears, Nose, Throat Exam: normal ENT inspection, moist mucous membranes Neck Exam: normal inspection, non-tender, supple, full range of motion Respiratory Exam: normal breath sounds, lungs clear, airway intact, No chest tenderness, No respiratory distress Cardiovascular Exam: regular rate/rhythm, normal heart sounds, normal peripheral pulses Gastrointestinal/Abdomen Exam: soft, normal bowel sounds, No tenderness Pelvic Exam: other (0.5 cm diameter mobile subcutaneous mass in the crease between the outer labia on the right side and upper inner thigh. No redness. No drainage. No abscess.) Rectal Exam: not done Back Exam: normal inspection, normal range of motion, No CVA tenderness Extremity Exam: normal inspection, normal range of motion, pelvis stable Neurologic Exam: alert, oriented x 3, cooperative, soa integration developer II-XII nml as tested, normal mood/affect, nml cerebellar function, nml station & gait, sensation nml Skin Exam: normal color, warm (See above), dry, other Lymphatic Exam: No adenopathy SpO2 Interpretation: normal SpO2: 98 O2 Delivery: Room Air - Course Nursing assessment & vital signs reviewed: Yes Ordered Tests: Medication Summary Generic Name Dose Route Start Last Admin Trade Name Freq PRN Reason Stop Dose Admin Cephalexin HCl 500 mg 10/22/21 01:51 Cephalexin Mh500 Mg Capsule PO 10/22/21 01:52 STAT ONE - Progress Counseled pt/family regarding: diagnosis, need for follow-up - Departure Departure Disposition: Home Clinical Impression: Labial cyst Condition: Stable Critical Care Time: No Referrals: ANNIE PERALTA MD [Primary Care Provider] - Follow up/PCP as directed Additional Instructions: Use Tylenol and naproxen for pain control. May use warm sitz bath twice a day. Keep your appointment with Dr. Peralta on 10/24/2021. Take your antibiotics as prescribed.
[2021-10-22] MEDS ORDERED: KEFLEX 500 MG ONE (02:27)
[2021-10-22 02:36] VITALS: BP 122/76; PULSE 70
== END 2021-10-22 02:40 | disposition home or self-care (01) ==
LOC: ED 23:50
DX: N90.7 Vulvar cyst (principal); Z79.899 Other long term (current) drug therapy
CPT/HCPCS: 99283; A9270-GY